=== PATIENT | male | born 1940 | race Caucasian/White ===

== ENCOUNTER → 2020-05-27 14:03 | Outpatient (CLI) | payer MEDICARE, OTHER, SELFPAY ==
[2020-05-27 13:33] VITALS: BMI 27.6
[2020-05-27 16:59] LABS: Hematocrit 41.1 % (40-54); Hemoglobin 13.2 g/dL (13.0-16.5); Mean Corp Hgb Conc 32.1 g/dL (32-36); Mean Corpuscular Hgb 32.2 pg (27.0-32.0); Mean Corpuscular Volume 100.2 fL (80-94); Mean Platelet Vol. 10.8 fl (6.2-12.0); Platelet Count 232 K/mm3 (150-450); RBC Distribution Width CV 12.2 % (11.6-14.6); RBC Distribution Width SD 45.2 fl (35.1-43.9); White Blood Count 5.4 K/mm3 (4.4-11.0)
[2020-05-27 17:34] LABS: ALB/GLOB Ratio 1.1 RATIO (0.9-2.4); AST(SGOT) 37 U/L (15-37); Alanine Aminotransfer ALT/SGPT 76 U/L (16-61); Albumin, Serum 3.9 g/dL (3.2-5.0); Alkaline Phosphatase 62 U/L (45-117); Anion Gap 4 (5-15); BUN 29 mg/dL (7-18); BUN/Creat Ratio 23.4 RATIO (10-20); Chloride 113 mmol/L (98-107); Cholesterol 166 mg/dL (200); Creatinine, Serum 1.24 mg/dL (0.70-1.30); EST Glomerular Filtration Rate 60 mL/min (>60); Est Glom Filt Rate - Afr Amer 72 mL/min (>60); Globulin 3.5 g/dL (2.2-4.2); Glucose 90 mg/dL (74-106); High Density Lipoprotein 57 mg/dL; Potassium 4.9 mmol/L (3.5-5.1); Protein, Total 7.4 g/dL (6.4-8.2); Sodium Level 143 mmol/L (136-145); Thyroid Stim Hormone (TSH) 1.37 uIU/mL (0.358-3.74); Triglycerides 74 mg/dL; Very Low Density Lipoprotein 15 mg/dL (5-40)
== END ==
PROVIDERS: PCP Family Medicine; Referring Provider Nurse Practitioner Family; Visit Provider Nurse Practitioner Family
DX: E78.00 Pure hypercholesterolemia, unspecified (principal); E78.5 Hyperlipidemia, unspecified; M10.9 Gout, unspecified
CPT/HCPCS: 36415; 80053; 80061; 84443; 85027

== ENCOUNTER → 2021-08-02 08:11 | Outpatient (CLI) | payer MEDICARE, OTHER, SELFPAY ==
--- NOTE | 2021-08-02 12:45 | NEURO ---
NCS and/or EMG Patient Report Ordering Doctor: Mauri Shi DATE OF SERVICE: 08/02/21 Iraj Abad presents for electrodiagnostic testing of the left upper limb. Reports numbness and tingling in the left arm for the past 3 months. Electrodiagnostic findings left median motor nerve demonstrates prolonged distal latency with reduced amplitude and conduction velocity. Normal left ulnar motor response. Prolonged left median F wave. Absent median sensory response at the palm and wrist. Normal ulnar and radial sensory responses. On needle EMG, all muscles tested in the left upper limb showed no evidence of denervation. Decreased recruitment noted in the first dorsal interosseous. Electrodiagnostic assessment: This is an abnormal study in the left upper limb. 1. Electrodiagnostic findings demonstrate left-sided median mononeuropathy. This is consistent with an advanced left carpal tunnel syndrome.
== END ==
PROVIDERS: PCP Family Medicine; Referring Provider Family Medicine; Visit Provider Family Medicine
DX: G56.02 Carpal tunnel syndrome, left upper limb (principal)
CPT/HCPCS: 95886; 95910

== ENCOUNTER 2021-10-03 05:37 | Day surgery (SDC) | payer MEDICARE, OTHER, SELFPAY ==
[2021-10-03] VITALS (7 sets, daily range): BP systolic 121–140; BP diastolic 65–83; PULSE 61–63; RESP 16–18; TEMP 35.9–36.2; O2SAT 95–99; BMI 27.9
[2021-10-03] MEDS: Lactated Ringers 1,000 ML 15 ML IV (06:40)
--- NOTE | 2021-10-03 07:17 | PCM.HP.BLA ---
History and Physical Date of Admission: 10/03/21 Date of Service: 09/04/21 MR#:[id number]: KRYS AYALARep #[id number] Provider:Dr. Arnold Galindo, Age/Sex: 81/M Location:[facility]:Signed Intake Vital Signs 09/04/21 14:21 Height 5 ft 11 in Weight: 196 lb BMI 27.3 Intake Visit Reasons: LEFT WRIST Allergies No Known Allergies Allergy (Verified 08/10/21 12:52) Medications timolol maleate 0.5 % eye drops 1 drp OPHTHALMIC BID 11/18/18 [History Confirmed 09/04/21] aspirin 325 mg tablet 325 mg PO DAILY tab 02/17/19 [History Confirmed 09/04/21] omeprazole 20 mg capsule,delayed release 20 mg PO DAILY #90 cap 05/16/21 [Rx Confirmed 09/04/21] simvastatin 20 mg tablet 20 mg PO QHS #90 tab 05/16/21 [Rx Confirmed 09/04/21] allopurinol 100 mg tablet 100 mg PO DAILY #90 tab 07/26/21 [Rx Confirmed 09/04/21] [facility] Medical History (Updated 09/04/21 @ 14:22 by Mirna Franklin) Family history of cholecystectomy Gout High cholesterol Surgical History (Updated 09/04/21 @ 14:22 by Mirna Franklin) History of atherectomy Hx of appendectomy Family History Father Diabetes Grandmother Diabetes Brother Diabetes Sister Diabetes Social History Smoking Status: Never smoker alcohol intake: current alcohol intake frequency: a few times a week Alcohol type: beer substance use type: does not use what type of physical activity do you participate in: other details: Golf frequency: 3-4 times per week HPI LEFT WRIST Details: Parts of this documentation were recorded by a scribe, this documentation accurately reflects the service provided and the decisions made by me, Dr. Arnold Galindo, DO 09/04/21 0749. KRYS AYALA is a 81 year old M NEW patient here today for left wrist pain, numbness and tingling. Patient states that he has been having the carpal tunnel s/sx for about 4 months. He has tried night bracing for about 2 months which was helpful at night. He was referred by Dr. Shi. He did have an EMG study done at [facility] on 08/02/2021 which showed advanced left carpal tunnel syndrome. He states that he has numbness and tingling of the left forearm into the left hand which includes all of his fingers but the 2nd and 3rd fingers are worse. He is left handed. Denies any injections or surgery of the left wrist. ROS Musc Denies arthralgias, Denies joint swelling, Reports numbness, Denies radiating pain into limb and Reports tingling Skin/Breast Denies erythema, Denies lesions, Denies pruritus, Denies rash and Denies skin swelling Neuro Yes numbness and Yes tingling Ortho Exam General General: Yes no acute distress Neurologic: Yes alert and Yes oriented x3 Psychologic: Yes reasonable and appropriate Right Wrist/Hand Skin/Wound: No Swelling and No Ecchymosis Left Wrist/Hand Skin/Wound: No Swelling, No Ecchymosis, Yes capillary refill normal and No erythema Left Wrist: Yes ROM-Extension 0-60, Yes ROM-Flexion 0-80, Yes ROM-Pronation 0-80, Yes ROM-Supination 0-90, Yes Durken's Test, Yes Tinel's, Yes Phalen's and Yes Thenar Atrophy WRIST: scar over the wrist x2, no s/sx of infection 4-5th stiffness of the PIP joints. Supplemental Info 08/02/2021 EMG left upper extremity severe carpal tunnel syndrome Coding Level of Care Code 14219 Diagnoses CTS (carpal tunnel syndrome) G56.00 Assessment and Plan Assessment and Plan (1) CTS (carpal tunnel syndrome): Status: Acute Plan - Dr. Arnold Galindo, DO: Personally reviewed patients EMG study from 07/2021. Educated that he does have advanced left carpal tunnel syndrome. Educated that he already has the thenar atrophy and this is permanent wasting of the muscle which will not return. Recommended that he has a left carpal tunnel release. The surgery may not take about the numbness and tingling but it will prevent the carpal tunnel from worsening. He will also be prone to stiffness after surgery and he will need to work on finger and wrist ROM post op. He can have sensitivity over the incision for a few months after surgery. Reviewed the pre-operative plans with the patient. Risks and benefits of the procedure were fully explained, including but not limited to infection, neurovascular injury, continued pain, arthritis, stiffness, need for further surgery, re-injury, DVT, PE, general risks of anesthesia, and loss of limb or life. The patient understands all the risks and does wish to proceed with written consent with left carpal tunnel release. He will need to to stop the aspirin 7 days prior to surgery. We will also need medical clearance from Dr. Shi. He wishes to proceed with surgery around the beginning of September. Follow up post op or sooner if pain, swelling, numbness or associated symptoms, or concerns develop. All questions answered. Patient in agreement of plan. 09/04/21 1449<Electronically signed by Arnold Galindo DO>Date Arnold Crane Signature:Date I have re-examined the patient. There are no clinical changes since date of exam
[2021-10-03] MEDS: Cefazolin 2 GM in 0.9% Normal Saline 100 ML IV (07:23)
[2021-10-03] MEDS: Lidocaine 1% /Epi 1:100 (20ml) 20 ML Vial (07:35)
--- NOTE | 2021-10-03 07:44 | PCM.OPRPT ---
Report of Operation Date of Procedure: 10/03/21 Description of Surgical Findings:: Preoperative diagnosis; left carpal tunnel syndrome Postoperative diagnosis; same Procedure: Left open carpal tunnel release Anesthesia: Local with MAC Tourniquet time; 10 minutes 250 mm Hg Complications: None Indication for procedure; This is a 81-year-old male with long-standing symptoms consistent with carpal tunnel syndrome the patient did have electrodiagnostic evidence of this and has failed conservative treatment. Risks benefits and alternatives were reviewed including risks of bleeding infection nerve artery tissue damage need for further surgery and continued pain and symptoms, hypersensitivity to scar and Pillar pain. Procedure; The patient was met in the preoperative holding area the operative extremity was identified by both patient and physician and was marked the patient was met by anesthesia and brought back to the operating room and transferred to the operating table in the supine position. Aanesthesia was started. A well-padded tourniquet was placed on the operative upper extremity. The patient was prepped and draped in the usual sterile fashion. A timeout was called to ensure the proper patient procedure and extremity were being contemplated. 0.5 percent Marcaine with epinephrine was injected into the incisional area. An Esmarch was used to exsanguinate the extremity. The tourniquet was inflated to 250 mmHg. A midline incision was made with a 15 blade scalpel between the thenar and hypothenar eminence. This was carried down through the skin and subcutaneous tissue. Ayanna retractors were then used, a deep blade scalpel was used to make a deep incision in the palmar aponeurosis. The ayanna retractors were then placed deep to this and the transverse carpal ligament was identified a perforation was made with a scalpel and a Littler scissors were used to complete the release of the transverse carpal ligament distally under direct visualization with the tips facing ulnarly until the perivascular fat was reached. Then turning our attention proximally using a tension slide technique the proximal extent of the transverse carpal ligament was released . There was noted to be hourglass configuration to the median nerve and hypertrophy of the transverse carpal ligament without other findings. The wound was thoroughly irrigated and was closed with 4-0 nylon vertical mattress stitches. Dressing was applied in the form of xeroform 4 x 4, web roll and an gail wrap. Tourniquet was let down there is no intraoperative complications patient tolerated the procedure well and was transferred to the PACU. All counts were correct.
--- NOTE | 2021-10-03 07:45 | EX.PCM.DISCH ---
Discharge Instructions Diet Discharge Diet: No restrictions Activity Additional Activity Instructions:: Ice and elevate operative extremity next 72 hours. Keep dressing on clean and dry for 48 hours then may remove and allow warm soapy water to rinse over incision but do not submerge until sutures are out. Then apply bandaid over incision and change daily. encourage finger range of motion. Not lift more than 1/2 pound. Minimize narcotic use only as needed and directed, may use OTC NSAID and Tylenol to supplement/substitute for pain control. Follow Up Care Please Follow Up With: Arnold Galindo DO When: 2 weeks Test Results: Test results from this visit will be discussed in further detail at your follow-up appointment, if applicable. Discharge Plan Admission Attending Provider: Arnold Galindo Primary Care Provider: Mauri Shi Discharge Orders/Prescriptions Prescriptions: New oxycodone 5 mg tablet 5 - 10 mg PO Q4H PRN (Reason: pain) 2 Days Qty: 10 RF: 0 No Action timolol maleate 0.5 % drops 1 drp OPHTHALMIC DAILY RF: 0 aspirin 325 mg tablet 325 mg PO DAILY RF: 0 simvastatin 20 mg tablet 20 mg PO QHS Qty: 90 RF: 1 omeprazole 20 mg capsule,delayed release(DR/EC) 20 mg PO DAILY Qty: 90 RF: 3 allopurinol 100 mg tablet 100 mg PO DAILY Qty: 90 RF: 2 Referrals / Follow Up: Mauri Shi DO [Primary Care Provider] - Disposition Disposition (needs filled in before D/C Order can be placed): Home, Self Care
== END 2021-10-03 09:06 | disposition home or self-care (01) ==
LOC: SDC 05:41 → AC 05:42
PROVIDERS: PCP Family Medicine; Referring Provider Orthopaedic Surgery; Visit Provider Orthopaedic Surgery
PROC: (CPT 64721; principal; 2021-10-03 07:15)
DX: G56.02 Carpal tunnel syndrome, left upper limb (principal); Z79.899 Other long term (current) drug therapy; Z79.82 Long term (current) use of aspirin
CPT/HCPCS: 01810; 64721; J7120; J2405

== ENCOUNTER → 2022-03-21 | Outpatient (CLI) | payer MEDICARE, OTHER, SELFPAY ==
[2022-03-21 15:29] LABS: Absolute Lymphocyte Count 1.55 X10^3/uL (0.83-4.51); Absolute Neutrophil Count 2.2 X10^3/uL (2.0-7.7); Basophil# 0.04 X10^3/uL; Basophil% 0.9 % (0-1); Eosinophils% 4.5 % (0-5); Hematocrit 39.8 % (40-54); Hemoglobin 13.4 g/dL (13.0-16.5); Lymphocyte # 1.55 X10^3/ul (0.83-4.51); Lymphocyte % 34.7 % (19-41); Mean Corp Hgb Conc 33.7 g/dL (32-36); Mean Corpuscular Hgb 32.4 pg (27.0-32.0); Mean Corpuscular Volume 96.1 fL (80-94); Mean Platelet Vol. 10.8 fl (6.2-12.0); Monocyte# 0.52 X10^3/uL; Monocyte% 11.6 % (0-10); NRBC Flagged by Analyzer 0 % (0-5); Neutrophil # 2.15 X10^3/uL (2.7-7.7); Neutrophil % 48.1 % (47-70); Platelet Count 218 K/mm3 (150-450); RBC Distribution Width CV 12.3 % (11.6-14.6); RBC Distribution Width SD 43.5 fl (35.1-43.9); Red Blood Count 4.14 M/mm3 (4.6-6.2); White Blood Count 4.5 K/mm3 (4.4-11.0)
[2022-03-21 15:47] LABS: ALB/GLOB Ratio 1.1 RATIO (0.9-2.4); AST(SGOT) 38 U/L (15-37); Alanine Aminotransfer ALT/SGPT 90 U/L (16-61); Albumin, Serum 3.9 g/dL (3.2-5.0); Alkaline Phosphatase 65 U/L (45-117); Anion Gap 4 (5-15); BUN 17 mg/dL (7-18); BUN/Creat Ratio 11.8 RATIO (10-20); Calcium,Total 9.3 mg/dL (8.5-10.1); Chloride 110 mmol/L (98-107); Cholesterol 163 mg/dL (200); Creatinine, Serum 1.44 mg/dL (0.70-1.30); EST Glomerular Filtration Rate 50 mL/min (>60); Est Glom Filt Rate - Afr Amer 60 mL/min (>60); Globulin 3.6 g/dL (2.2-4.2); Glucose 99 mg/dL (74-106); High Density Lipoprotein 53 mg/dL; Potassium 5.1 mmol/L (3.5-5.1); Protein, Total 7.5 g/dL (6.4-8.2); Sodium Level 141 mmol/L (136-145); Triglycerides 64 mg/dL; Uric Acid 6.8 mg/dL (3.5-7.2); Very Low Density Lipoprotein 13 mg/dL (5-40)
[2022-03-22 07:27] LABS: Amylase 50 U/L (25-115); Lipase 83 U/L (73-393)
== END | disposition home or self-care (01) ==
LOC: BIMLAB 14:10
PROVIDERS: PCP Family Medicine; Referring Provider Physician Assistant; Visit Provider Physician Assistant
DX: R10.11 Right upper quadrant pain (principal); M10.9 Gout, unspecified; E78.00 Pure hypercholesterolemia, unspecified; R07.9 Chest pain, unspecified
CPT/HCPCS: 36415; 80053; 80061; 82150; 83690; 84550; 85025

== ENCOUNTER → 2022-05-30 | Outpatient (CLI) | payer MEDICARE, OTHER, SELFPAY ==
[2022-05-30 18:36] LABS: ALB/GLOB Ratio 1.1 RATIO (0.9-2.4); AST(SGOT) 35 U/L (15-37); Alanine Aminotransfer ALT/SGPT 79 U/L (16-61); Albumin, Serum 4.1 g/dL (3.2-5.0); Alkaline Phosphatase 69 U/L (45-117); Anion Gap 3 (5-15); BUN 15 mg/dL (7-18); BUN/Creat Ratio 10.9 RATIO (10-20); Calcium,Total 9.4 mg/dL (8.5-10.1); Chloride 107 mmol/L (98-107); Creatinine, Serum 1.38 mg/dL (0.70-1.30); EST Glomerular Filtration Rate 52 mL/min (>60); Est Glom Filt Rate - Afr Amer 63 mL/min (>60); Globulin 3.8 g/dL (2.2-4.2); Glucose 85 mg/dL (74-106); Potassium 4.4 mmol/L (3.5-5.1); Protein, Total 7.9 g/dL (6.4-8.2); Sodium Level 138 mmol/L (136-145)
== END | disposition home or self-care (01) ==
LOC: BIMLAB 16:09
PROVIDERS: Physician Assistant; PCP Family Medicine; Visit Provider Family Medicine
DX: M10.9 Gout, unspecified (principal)
CPT/HCPCS: 36415; 80053

== ENCOUNTER → 2023-08-07 | Outpatient (CLI) | payer MEDICARE, OTHER, SELFPAY ==
[2023-08-07 16:45] LABS: ALB/GLOB Ratio 1.2 RATIO (0.9-2.4); AST(SGOT) 26 U/L (15-37); Alanine Aminotransfer ALT/SGPT 49 U/L (16-61); Albumin, Serum 3.8 g/dL (3.2-5.0); Alkaline Phosphatase 60 U/L (45-117); Anion Gap 3 (5-15); BUN 13 mg/dL (7-18); BUN/Creat Ratio 9.8 RATIO (10-20); Chloride 111 mmol/L (98-107); Cholesterol 138 mg/dL (200); Creatinine, Serum 1.33 mg/dL (0.70-1.30); EST Glomerular Filtration Rate 55 mL/min (>60); Est Glom Filt Rate - Afr Amer 66 mL/min (>60); Globulin 3.2 g/dL (2.2-4.2); Glucose 112 mg/dL (74-106); High Density Lipoprotein 58 mg/dL; Potassium 4.9 mmol/L (3.5-5.1); Sodium Level 142 mmol/L (136-145); Triglycerides 65 mg/dL; Uric Acid 7.2 mg/dL (3.5-7.2); Very Low Density Lipoprotein 13 mg/dL (5-40)
== END | disposition home or self-care (01) ==
LOC: BIMLAB 15:47
PROVIDERS: PCP Family Medicine; Visit Provider Family Medicine
DX: E78.00 Pure hypercholesterolemia, unspecified (principal)
CPT/HCPCS: 36415; 80053; 80061; 84550

== ENCOUNTER → 2024-02-05 | Outpatient (CLI) | payer MEDICARE, SELFPAY ==
[2024-02-05 17:21] LABS: Anion Gap 5 (5-15); BUN 11 mg/dL (7-18); Calcium,Total 9.3 mg/dL (8.5-10.1); Chloride 111 mmol/L (98-107); Creatinine, Serum 1.38 mg/dL (0.70-1.30); EST Glomerular Filtration Rate 52 mL/min (>60); Est Glom Filt Rate - Afr Amer 63 mL/min (>60); Glucose 116 mg/dL (74-106); Potassium 4.7 mmol/L (3.5-5.1); Sodium Level 141 mmol/L (136-145)
== END | disposition home or self-care (01) ==
PROVIDERS: PCP Family Medicine; Referring Provider Family Medicine; Visit Provider Family Medicine
DX: E78.00 Pure hypercholesterolemia, unspecified (principal); K21.9 Gastro-esophageal reflux disease without esophagitis
CPT/HCPCS: 36415; 80048

== ENCOUNTER 2024-02-14 16:10 | Observation (INO) | payer MEDICARE, SELFPAY ==
[2024-02-14] VITALS (8 sets, daily range): BP systolic 129–178; BP diastolic 73–117; PULSE 63–88; RESP 12–18; TEMP 36.2–36.9; O2SAT 95–99; BMI 28.4; BMI 27.2
--- NOTE | 2024-02-14 16:22 | EKG12_ITS ---
Test Reason : Blood Pressure : / mmHG Vent. Rate : 066 BPM Atrial Rate : 066 BPM P-R Int : 182 ms QRS Dur : 090 ms QT Int : 410 ms P-R-T Axes : 025 021 007 degrees QTc Int : 429 ms Normal sinus rhythm Normal ECG Confirmed by Evaristo Cervantes ([id number]), industrial editor LISSA SCHILLING ([id number]) on 02/17/2024 2:20:09 PM Referred By: Confirmed By:Evaristo Cervantes
--- NOTE | 2024-02-14 16:42 | CT_ITS ---
INDICATION: Neuro deficit, acute, stroke suspected EXAMINATION: CT BRAIN WITH CONTRAST TECHNIQUE: Noncontrast axial images were obtained of the brain. Subsequently, routine carotid CT angiogram protocol was performed without and with IV contrast. In addition, images were obtained of the [place]. NASCET criteria using the distal ICAs for comparison were used for evaluation of stenoses. 3D reconstructions were reviewed. A radiation dose optimization technique was used for this scan. IV Contrast dosage and agent: 100 cc [id number]-370 COMPARISON: None. FINDINGS: --CT BRAIN: BRAIN PARENCHYMA: No intra- or extra-axial hemorrhage. No evidence of acute infarct. No intracranial mass or mass effect. There is preservation of the freitas/white matter interface. Posterior fossa structures are unremarkable. CSF SPACES: Appropriate for age. No hydrocephalus. Basal cisterns are patent. CALVARIUM, SKULL BASE, PARANASAL SINUSES AND MASTOID AIR CELLS: Clear. No discrete lytic or blastic abnormalities. --CTA NECK: AORTIC ARCH AND BRANCHES: Normal anatomy, patent. RIGHT CCA: No occlusion, significant stenosis or dissection. RIGHT ICA: No occlusion, significant stenosis or dissection. LEFT CCA: No occlusion, significant stenosis or dissection. LEFT ICA: No occlusion, significant stenosis or dissection. RIGHT VERTEBRAL ARTERY: No occlusion, significant stenosis or dissection. LEFT VERTEBRAL ARTERY: No occlusion, significant stenosis or dissection. NECK SOFT TISSUES: Unremarkable. --CTA HEAD: --Anterior circulation: ICAs: No significant stenosis at the intracranial/visualized segments. ACAs: No significant stenosis at the visualized segments. ACOM: Present. MCAs: No significant stenosis at the visualized segments. --Posterior circulation: PCOMs: Patent bilaterally. therapeutic consultant: No significant stenosis at the visualized segments. BASILAR ARTERY: No significant stenosis. VERTEBRAL ARTERIES: No significant stenosis at the intradural/visualized segments. No evidence of intracranial aneurysm or vascular malformation. CT/CTA Head AND Neck W/ Contrast IMPRESSION: Negative CT Brain, CTA Carotid, and CTA Brain. Electronically Signed: Prem Yang MD at 17:47 EDT ,
--- NOTE | 2024-02-14 16:42 | EDS_ITS ---
HPI History of Present Illness Chief Complaint: Neuro S/Sx Narrative Narrative: 84-year-old male past medical history of hypercholesterolemia, gout, presents with headache, and vision changes. He states that he woke at 730 this morning and thinks that he was having problems out of his bilateral eyes. He told triage that it was like looking through broken glass. This resolved after 20 to 25 minutes according to him. He had a little bit of a headache that had resolved as well. This afternoon at 3, he states his headache came back but the vision changes did not return. States his head hurts all over. He told his later on in the afternoon about the vision changes. They called their primary care provider and spoke with the practical nurse who was concerned about TIA and told him to come to the emergency department for evaluation because the symptoms could happen again within 24 hours. Patient denies any chest pain or shortness of breath. No vision or speech changes. He states he was able to go to the gym and workout, but his headache did not really resolve. also states that he has history of carotid endarterectomy on 1 side, but he did not require any surgery on the other side. [facility] Medical History Alcohol use Arthritis Asthma Back pain Gastric reflux Gout Gout High cholesterol History of stress test Hx of closed fracture of nasal bones Non-smoker Wears hearing aid Wears partial dentures Home Medications nitroglycerin 0.4 mg sublingual tablet 0.4 mg sublingual Q5-15M PRN chest pain #20 tabs 11/21/22 [Rx Last Taken Unknown] aspirin 325 mg tablet 162.5 mg PO DAILY 08/07/23 [History Last Taken 02/14/24] pantoprazole 20 mg tablet,delayed release 20 mg PO DAILY Reflux #60 tabs 01/17/24 [Rx Last Taken 02/14/24] simvastatin 20 mg tablet 20 mg PO QHS #60 tabs 01/17/24 [Rx Last Taken 02/13/24] carboxymethylcellulose sodium 1 % eye drops (Artificial Tears (carboxymethylcellulose)) 1 drp EACH EYE DAILY PRN dry eye(s) 02/14/24 [History Last Taken Unknown] nystatin 100,000 unit/gram topical powder 1 applic topical BID PRN skin irritation 02/14/24 [History Last Taken Unknown] Allergy/AdvReac Type Severity Reaction Status Date / Time No Known Allergies Allergy Verified 02/14/24 16:12 Family History Father Diabetes Grandmother Diabetes Brother Diabetes Sister Diabetes Surgical History History of cardiac catheterization History of carotid endarterectomy History of incision and drainage Hx laparoscopic cholecystectomy Hx of colonoscopy Hx of left cataract extraction Hx of shoulder surgery Social History (Updated 02/14/24 @ 18:[address] Felisa Harley MD) household members: spouse Smoking Status: Never smoker alcohol intake: current alcohol intake frequency: a few times a week Alcohol type: beer substance use type: does not use what type of physical activity do you participate in: other details: Golf frequency: 3-4 times per week ROS ROS ED ROS Narrative Constitutional: No fever, no chills. HEENT: No sore throat. No neck pain. No loss of vision. Positive vision change this morning lasting 20 to 25 minutes. No rhinorrhea. Cardiovascular: No chest pain. No palpitations. No pedal edema. Respiratory: No cough, no shortness of breath. Abdominal: No abdominal pain. No nausea. No vomiting. Genitourinary: No dysuria. No hematuria. Musculoskeletal: No myalgias. No arthralgias. Neurologic: Positive headaches. No dizziness. No lightheadedness. Skin: No rash. No change in color. Psychiatric: No depression. No anxiety. EXAM Physical Exam Narrative Exam Narrative: Afebrile. Vital signs noted. HEENT: Normocephalic. Atraumatic. PERRL, EOMI. Neck soft and supple. No point tenderness or step off. Cardiovascular: Regular rate and rhythm. No murmurs, rubs, or gallops appreciated. Respiratory: No tachypnea. Lungs clear to auscultation bilaterally. Gastrointestinal: Abdomen soft, nontender, with normoactive bowel sounds. No rebound or guarding. Neurological: Awake. Alert. Nonfocal, nonlateralizing. NIH stroke scale is 0. Skin: No rash. Normal color. No pallor. Musculoskeletal: No pedal edema. Full range of motion extremities. Const Vital Signs: 02/14/24 16:12 02/14/24 16:46 02/14/24 17:11 Temperature 97.1 F L Temperature Source Temporal Pulse Rate 81 66 Respiratory Rate 18 13 Blood Pressure 173/88 H 177/88 H Blood Pressure Mean 116 117 Pulse Ox 97 99 Oxygen Delivery Method Room Air Room Air Room Air 02/14/24 17:11 02/14/24 17:30 02/14/24 18:00 Temperature Temperature Source Pulse Rate 66 65 67 Respiratory Rate 13 13 16 Blood Pressure 177/88 H 178/73 H 157/83 H Blood Pressure Mean 117 108 107 Pulse Ox 99 99 95 Oxygen Delivery Method Room Air Room Air Room Air 02/14/24 18:04 Temperature 98.4 F Temperature Source Pulse Rate 63 Respiratory Rate 13 Blood Pressure 129/117 H Blood Pressure Mean 121 Pulse Ox 96 Oxygen Delivery Method NIHSS NIHSS Initial: 1a Level of Consciousness: 0 1b LOC Questions (Score 2 if aphasic/stupor): 0 1c LOC Commands (Only score 1st attempt): 0 2 Best Gaze (If aphasic, use reflexive mvmts.): 0 3 Visual: 0 4 Facial Palsy: 0 5 Motor Arm Right (UN = amputation/fusion): 0 5 Motor Arm Left: 0 6 Motor Leg Right: 0 6 Motor Leg Left: 0 7 Limb ataxia (Only + if out of proportion): 0 8 Sensory (Aphasia/stupor=0 or 1, coma=2): 0 9 Best Language: 0 10 Dysarthria (mute, coma=2, intubated=UN): 0 11 Extinction and Inattention (only scored if +): 0 Total Score: 0 MDM MDM MDM Narrative Medical decision making narrative: In the differential diagnosis is TIA versus atypical migraine. I have low suspicion for retinal pathology as he states that he believes his symptoms were bilateral, and additionally they have resolved. I do not feel that stroke team is indicated given his NIH stroke scale of 0 and complaining only of mild headache. He is outside the window for any TNK as his symptoms started at 730 this morning this was approximately 9 hours ago. He is symptom-free. I reviewed his laboratory work and he has normal white count of 4.8, hemoglobin normal at 13.2, hematocrit 40.6, platelet count normal at 222. INR is normal at 1.0 with PT 13.3, creatinine is slightly elevated at 1.32 (baseline with a normal BUN of 13, glucose appropriately elevated at 100, sodium and potassium normal at 140 and 4.3 respectively with chloride slightly elevated at 108 which I think is nonspecific. High-sensitivity troponin is 9. EKG interpreted by myself independently demonstrates normal sinus rhythm at 66 bpm without ectopy or acute ST changes. No STEMI. I reviewed the radiology report of the CT of the brain which shows no acute hemorrhage, CTA shows no large vessel occlusion according to the radiology report as well. Chest x-ray in 1 view interpreted by myself shows no acute process, no pneumonia, no pneumothorax. I reviewed the radiology report which confirms my independent interpretation. At this point in time, he remains symptom-free. I discussed patient with Dr. Felisa Harley for observation on the PCU. Patient is in stable condition. History & Record Review Discussion w/independent historian: Patient and Family Additional record(s) reviewed:: Prior labs Lab Data Attestation: I reviewed the patient's lab results. Labs: Laboratory Results - last 24 hr 02/14/24 16:36 WBC 4.8 RBC 4.26 L Hgb 13.2 Hct 40.6 MCV 95.3 H MCH 31.0 MCHC 32.5 RDW Std Deviation 42.7 RDW Coeff of [place] 12.2 Plt Count 222 MPV 10.6 Immature Gran % (Auto) 0.400 Neut % (Auto) 50.5 Lymph % (Auto) 32.7 Cobb % (Auto) 11.9 H Eos % (Auto) 3.5 Baso % (Auto) 1.0 Absolute Neuts (auto) 2.4 Absolute Lymphs (auto) 1.57 Nucleated RBC % 0 PT 13.3 INR 1.0 Sodium 140 Potassium 4.3 Chloride 108 H Carbon Dioxide 25.0 Anion Gap 7 BUN 13 Creatinine 1.32 H Estim Creat Clear Calc 48.42 Est GFR (MDRD) Af Amer 66 Est GFR (MDRD) Non-Af 55 L BUN/Creatinine Ratio 9.8 L Glucose 100 Calcium 9.2 Troponin I High Sens 9 Radiography Diagnostic Testing: Clinical Impression(s) from Imaging Studies Head/Neck CTA 02/14/24 16:42 IMPRESSION: Negative CT Brain, CTA Carotid, and CTA Brain. Electronically Signed: Prem Yang MD at 17:47 EDT , Chest X-Ray 02/14/24 17:03 IMPRESSION: No radiographic evidence of acute cardiopulmonary disease. Electronically Signed: Prem Yang MD at 17:34 EDT Reading Location ID and State: [facility] [place] / [place] Tel , Service support , Management Discussion w/another healthcare provider: Hospitalist (Dr. Harley) Discharge Plan Triage Chief Complaint: Neuro S/Sx Other Complaint: Headache ED Provider: Keaton Cyr Dx/Rx/DC Orders Clinical Impression: Visual disturbance, TIA (transient ischemic attack), Headache Prescriptions: No Action aspirin 325 mg tablet 162.5 mg PO DAILY Patient Comments: TAKE ONE HALF TABLET DAILY nitroglycerin 0.4 mg tablet, sublingual 0.4 mg sublingual Q5-15M PRN (Reason: chest pain) Qty: 20 0RF Rx Instructions: do not exceed 3 doses per episode Artificial Tears (cmc) 1 % drops 1 drp EACH EYE DAILY PRN (Reason: dry eye(s)) nystatin 100,000 unit/gram powder 1 applic topical BID PRN (Reason: skin irritation) pantoprazole 20 mg tablet,delayed release (DR/EC) 20 mg PO DAILY Qty: 60 2RF simvastatin 20 mg tablet 20 mg PO QHS Qty: 60 2RF Primary Care Provider: Mauri Shi Referrals: Mauri Shi, DO [Primary Care Provider] -
[2024-02-14 16:54] LABS: Absolute Lymphocyte Count 1.57 X10^3/uL (0.83-4.51); Absolute Neutrophil Count 2.4 X10^3/uL (2.0-7.7); Basophil# 0.05 X10^3/uL; Eosinophil# 0.17 X10^3/uL; Eosinophils% 3.5 % (0-5); Hematocrit 40.6 % (40-54); Hemoglobin 13.2 g/dL (13.0-16.5); Lymphocyte # 1.57 X10^3/ul (0.83-4.51); Lymphocyte % 32.7 % (19-41); Mean Corp Hgb Conc 32.5 g/dL (32-36); Mean Corpuscular Volume 95.3 fL (80-94); Mean Platelet Vol. 10.6 fl (6.2-12.0); Monocyte# 0.57 X10^3/uL; Monocyte% 11.9 % (0-10); NRBC Flagged by Analyzer 0 % (0-5); Neutrophil # 2.42 X10^3/uL (2.7-7.7); Neutrophil % 50.5 % (47-70); Platelet Count 222 K/mm3 (150-450); RBC Distribution Width CV 12.2 % (11.6-14.6); RBC Distribution Width SD 42.7 fl (35.1-43.9); Red Blood Count 4.26 M/mm3 (4.6-6.2); White Blood Count 4.8 K/mm3 (4.4-11.0)
[2024-02-14 16:59] LABS: Prothrombin Time (Protime)PT. 13.3 SECONDS (11.7-14.9)
--- NOTE | 2024-02-14 17:03 | RAD_ITS ---
INDICATION: Neuro deficit, acute, stroke suspected EXAMINATION/TECHNIQUE: X-RAY - portable upright AP chest x-ray COMPARISON: None. FINDINGS: LINES/DEVICES: None. LUNGS: No consolidation, edema or effusion. No pneumothorax. MEDIASTINUM AND CARDIOVASCULAR STRUCTURES: Cardiac silhouette not enlarged. Central airways and mediastinal contour are unremarkable. BONES AND SOFT TISSUES: No acute findings. RAD/Chest 1 View IMPRESSION: No radiographic evidence of acute cardiopulmonary disease. Electronically Signed: Prem Yang MD at 17:34 EDT ,
[2024-02-14 17:10] LABS: Anion Gap 7 (5-15); BUN 13 mg/dL (7-18); BUN/Creat Ratio 9.8 RATIO (10-20); Calcium,Total 9.2 mg/dL (8.5-10.1); Chloride 108 mmol/L (98-107); Creatinine, Serum 1.32 mg/dL (0.70-1.30); EST Glomerular Filtration Rate 55 mL/min (>60); Est Glom Filt Rate - Afr Amer 66 mL/min (>60); Estimated Creatinine Clearance 48.42 ml/min; Glucose 100 mg/dL (74-106); Potassium 4.3 mmol/L (3.5-5.1); Sodium Level 140 mmol/L (136-145); Troponin-I HS 9 pg/mL (3.0-78.0)
--- NOTE | 2024-02-14 18:04 | HP.PCM.HOS_ITS ---
HPI - General General Date of Admission: 02/14/24 Date of Service: 02/14/24 Chief Complaint: Transient vision changes, headache. HPI Narrative The patient is an 84 y/o M w/ PMHx: Asthma, GERD, Gout, CKD stage III unclear subtype per GFR trending, HLD, Carotid disease s/p CEA who presents to the [facility] ED on 02/14/24 with history of awakening at 7:30 in the morning with vision changes reportedly stating that he felt as though he was looking at a broken glass which resolved after 20-25 minutes in addition to a mild headache that resolved as well however at approximately 3 PM he had return of his headache but no specific vision changes but his head hurt diffusely all over eventually prompting PCP call who recommended given the vision changes previously evaluation in the ED to assure no concern for TIA/stroke. Patient denies any other focal deficits. He notes he was even able to go to the gym and workout but the headache still continued. Patient notes that the headache at its worst was 1-2 out of 10 in severity and currently is at 0.5 out of 10 and nearly resolved. He states that it has been in different places and currently right now is more in the frontal region and he has difficulty describing it but notes it is very minimal. He denies any sound or light sensitivity. Workup in the ED included T97.1, heart rate 81, BP 173/88, respiratory rate is 18, 97% on room air, CBC with WBC 4.8, hemoglobin 13.2, platelet 222 without marked shift, unremarkable coags, BMP with chloride 108, BUN/creatinine 13/1.32, GFR 55, troponin 9, chest x-ray with no acute cardiopulmonary findings, CTA head and neck with no marked acute findings, CT brain also unremarkable, EKG SR without acute evidence of acute ischemia. In the ED NIHSS 0. PFSH Medical History Alcohol use Arthritis Asthma Back pain Gastric reflux Gout Gout High cholesterol History of stress test Hx of closed fracture of nasal bones Non-smoker Wears hearing aid Wears partial dentures Home Medications nitroglycerin 0.4 mg sublingual tablet 0.4 mg sublingual Q5-15M PRN chest pain #20 tabs 11/21/22 [Rx Last Taken Unknown] aspirin 325 mg tablet 162.5 mg PO DAILY 08/07/23 [History Last Taken 02/14/24] pantoprazole 20 mg tablet,delayed release 20 mg PO DAILY Reflux #60 tabs 01/17/24 [Rx Last Taken 02/14/24] simvastatin 20 mg tablet 20 mg PO QHS #60 tabs 01/17/24 [Rx Last Taken 02/13/24] carboxymethylcellulose sodium 1 % eye drops (Artificial Tears (carboxymethylcellulose)) 1 drp EACH EYE DAILY PRN dry eye(s) 02/14/24 [History Last Taken Unknown] nystatin 100,000 unit/gram topical powder 1 applic topical BID PRN skin irritation 02/14/24 [History Last Taken Unknown] Allergy/AdvReac Type Severity Reaction Status Date / Time No Known Allergies Allergy Verified 02/14/24 16:12 Family History Father Diabetes Grandmother Diabetes Brother Diabetes Sister Diabetes Mother Breast cancer Psoriasis Surgical History History of cardiac catheterization History of carotid endarterectomy History of incision and drainage Hx laparoscopic cholecystectomy Hx of colonoscopy Hx of left cataract extraction Hx of shoulder surgery Social History household members: spouse housing: condominium Smoking Status: Never smoker alcohol intake: current alcohol intake frequency: a few times a week Alcohol type: beer substance use type: does not use what type of physical activity do you participate in: other details: Golf frequency: 3-4 times per week ROS ROS Narrative Admission Review of Systems: CONSTITUTIONAL: No weight loss, fever, chills, + weakness or fatigue. HEENT: + Transient vision blurring/changes, mild headache. Eyes: No visual loss, double vision or yellow sclerae. Ears, Nose, Throat: No hearing loss, sneezing, congestion, runny nose or sore throat. SKIN: No rash or itching, lesions, wounds. CARDIOVASCULAR: No chest pain, chest pressure or chest discomfort, palpitations, edema, orthopnea, syncopal events. RESPIRATORY: No shortness of breath, cough or sputum, wheezing, hemoptysis. GASTROINTESTINAL: No anorexia, nausea, vomiting or diarrhea, abdominal pain, melena, BRBPR. GENITOURINARY: No dysuria, frequency, urgency or retention. NEUROLOGICAL: + Transient headache, vision changes as noted. No dizziness, syncope, paralysis, ataxia, numbness or tingling in the extremities, focal weakness, change in bowel or bladder control, seizure. MUSCULOSKELETAL: No muscle, back pain, joint pain or stiffness. HEMATOLOGIC: No anemia. + Easy bleeding/bruising. LYMPHATICS: No enlarged nodes. No history of splenectomy. PSYCHIATRIC: No history of depression or anxiety. ENDOCRINOLOGIC: No reports of sweating, cold or heat intolerance. No polyuria or polydipsia. ALLERGIES: No history of asthma, hives, eczema or rhinitis. Vital Signs Vital Signs Vital Signs: 02/14/24 16:12 02/14/24 16:46 02/14/24 17:11 Temperature 97.1 F L Temperature Source Temporal Pulse Rate 81 66 Respiratory Rate 18 13 Blood Pressure 173/88 H 177/88 H Blood Pressure Mean 116 117 Pulse Ox 97 99 Oxygen Delivery Method Room Air Room Air Room Air 02/14/24 17:11 02/14/24 17:30 Temperature Temperature Source Pulse Rate 66 65 Respiratory Rate 13 13 Blood Pressure 177/88 H 178/73 H Blood Pressure Mean 117 108 Pulse Ox 99 99 Oxygen Delivery Method Room Air Room Air Weight Weight: 203 lb 14.4 oz Body Mass Index (BMI) 28.4 Physical Exam Narrative Physical Examination: General: Awake, alert, oriented x 3 and cooperative, seated upright in the ED bed in no apparent distress. Skin: Normal color, normal turgor, no icterus, no cyanosis. HEENT: AT/NC, EOMI, PERRLA, MMM, vision currently intact, no carotid bruits or JVD noted. Lungs: Mildly diminished, greater bases, appropriate effort, no rales, ronchi or wheezing. Heart: Regular rate and rhythm; no gallop, rub audible. Abdomen: Soft, overweight, NTTP, ND, distant normal BS, no appreciated HSM. Extremities: No cyanosis, clubbing, or edema. Neurological: Patient awake, alert, oriented as noted, cognitive function intact; pupils equally reactive to light and accommodation, cranial nerves grossly normal, vision intact, sensation intact, finger-nose and [id number]-pw-[id number] appropriate, equivocal Babinski, moving all 4 extremities, no focal deficits, strength preserved. Psychiatric: Affect appears mildly fatigued otherwise normal, no acute evidence of depressive or anxiety feelings. Results Lab / Micro Data 02/14/24 16:36 02/14/24 16:36 Labs: Laboratory Results - last 24 hr 02/14/24 16:36: WBC 4.8, RBC 4.26 L, Hgb 13.2, Hct 40.6, MCV 95.3 H, MCH 31.0, MCHC 32.5, RDW Std Deviation 42.7, RDW Coeff of [place] 12.2, Plt Count 222, MPV 10.6, Immature Gran % (Auto) 0.400, Neut % (Auto) 50.5, Lymph % (Auto) 32.7, [place] % (Auto) 11.9 H, Eos % (Auto) 3.5, Baso % (Auto) 1.0, Absolute Neuts (auto) 2.4, Absolute Lymphs (auto) 1.57, Nucleated RBC % 0, PT 13.3, INR 1.0, Sodium 140, Potassium 4.3, Chloride 108 H, Carbon Dioxide 25.0, Anion Gap 7, BUN 13, Creatinine 1.32 H, Estim Creat Clear Calc 48.42, Est GFR (MDRD) Af Amer 66, Est GFR (MDRD) Non-Af 55 L, BUN/Creatinine Ratio 9.8 L, Glucose 100, Calcium 9.2, Troponin I High Sens 9 Imaging Radiology Impression Head/Neck CTA 02/14/24 16:42 IMPRESSION: Negative CT Brain, CTA Carotid, and CTA Brain. Electronically Signed: Prem Yang MD at 17:47 EDT , Chest X-Ray 02/14/24 17:03 IMPRESSION: No radiographic evidence of acute cardiopulmonary disease. Electronically Signed: Prem Yang MD at 17:34 EDT , Assessment & Plan Assessment/Plan (1) TIA (transient ischemic attack): PLAN: Plan The patient is an 84 y/o M w/ PMHx: Asthma, GERD, Gout, CKD stage III unclear subtype per GFR trending, HLD, Carotid disease s/p CEA who presents to the [facility] ED on 02/14/24 with history of awakening at 7:30 in the morning with vision changes reportedly stating that he felt as though he was looking at a broken glass which resolved after 20-25 minutes in addition to a mild headache that resolved as well however at approximately 3 PM he had return of his headache but no specific vision changes but his head hurt diffusely all over eventually prompting PCP call who recommended given the vision changes previously evaluation in the ED to assure no concern for TIA/stroke. #1. Transient vision changes with intermittent headache concerning for TIA versus atypical complex migraine: Will admit to PCU, will obtain MRI Brain, ECHO, PT/OT/Speech/Nutrition evaluation per protocol. Will allow permissive HTN, maintain on asa, statin w/ AM FLP, fall precautions. Mag, TSH, FLP, HgbA1c requested. Maintain on fall and aspiration precautions. Will request Neurology consultation. #2. Elevated BP without prior hypertensive diagnosis: From review of records and outpatient medication no evidence of having been on previous hypertensive medication, BP certainly above goal, given presentation #1 will maintain permissive hypertension pending further stroke workup and add regimen if becomes clinically appropriate with as needed agents per stroke protocol in the interim. #3. Chronic asthma: Per current list not on any chronic regimen, will have PRN albuterol, HOB, IS parameters. #4. Chronic Kidney Disease Stage III, unclear subtype per GFR trending: Admission BUN/Cr 13/1.32, GFR 55, previous baseline GFR in the 50s, baseline renal function 1.3-1.4, repeat BMP in AM. #5. Carotid disease: Status post prior carotid enterectomy, will continue patient aspirin, statin regimen, CTA head neck as noted above #6. Hyperlipidemia: Continue home statin regimen. AM FLP. #7. GERD: We will continue patient on PPI. #8. Gout: We will continue patient on allopurinol regimen. #9. DVT prophylaxis: Lovenox. #10. CODE status: Patient HCPOA and living will are not in place but patient notes that his who is present would be his decision-maker if he was unable. Discussed CODE status at length including difference between FULL code, DNR-CCA and DNR-CC status. Following discussions about the differences in these status, requested Full Code status. Advanced Care Planning Face to Face Time: 16 minutes. Charges/Coding Visit Charges Inpatient E&M: 97656 Init Hosp L2 Procedures Hospitalists Procedures: 68069 Advncd Care Plan 30 Min
[2024-02-14 18:37] LABS: Magnesium 2.1 mg/dL (1.6-2.6)
--- NOTE | 2024-02-14 19:11 | ECHOCS_ITS ---
Reason For Study: TIA/CVA Procedure This was a 2D Doppler, Color Flow transthoracic echocardiogram. Contrast injection was performed. Exam performed portable in patient room. Left Ventricle Normal left ventricle. The estimated ejection fraction is 55-60 %. Right Ventricle Normal right ventricle. Normal systolic function. Atria Normal left atrium. Normal right atrium. Mitral Valve The mitral valve is structurally normal. No prolapse or stenosis seen. Trivial mitral valve insufficiency. Tricuspid Valve Normal tricuspid valve. Trivial tricuspid valve insufficiency. Aortic Valve The aortic valve is not well visualized in the short axis view. Pulmonic Valve The pulmonic valve is not well visualized. Great Vessels Normal aortic root. Pericardium/Pleural No pericardial effusion. Medication Performed a rapid injection of agitated mix of 9 cc saline and 1cc air to assess for atrial septal defect. Diluted definity 2ml given slow IV push to enhance endocardial definition. MMode/2D Measurements & Calculations LVIDd: 4.6 cm IVSd: 0.94 cm Ao root diam: 3.5 cm LVIDs: 3.0 cm LVPWd: 0.91 cm RVDd: 4.3 cm FS: 33.4 % LAV(MOD-bp): 50.5 ml LA A4 area: 17.0 cm2 LA dimension(2D): 3.7 cm LAV(MOD-bp) Indexed: 23.8 ml/m2 LAV(MOD-sp2): 63.9 ml LAV(MOD-sp4): 39.5 ml TAPSE: 2.0 cm RA A4 area: 14.1 cm2 Time Measurements MV dec time: 0.22 sec Doppler Measurements & Calculations MV E max sebastián: 66.4 cm/sec Lat Peak E' Sebastián: 11.4 cm/sec Med Peak E' Sebastián: 6.5 cm/sec MV A max sebastián: 73.1 cm/sec E/E' lat: 5.8 E/E' med: 10.2 MV E/A: 0.91 MV dec slope: 302.0 cm/sec2 Ao V2 max: 95.4 cm/sec LV V1 max: 91.1 cm/sec Ao max P.6 mmHg LV V1 max P.3 mmHg Ao V2 mean: 68.2 cm/sec Ao mean P.1 mmHg Ao V2 VTI: 22.7 cm PA V2 max: 61.9 cm/sec TR max sebastián: 198.5 cm/sec TR max P.8 mmHg ECHO/Echo Complete W/ Contrast Interpretation Summary The estimated ejection fraction is 55-60 %. Normal LV systolic function Grade 1 diastolic dysfunction No significant valve abnormality Contrast echo using Definity was performed No prior echocardiogram to compare. Ordering Physician: Felisa Harley Referring Physician: Mauri Shi Performed By: Mariann Du RDCS, RVT
[2024-02-14] MEDS: 0.9% Normal Saline (1000mL) 1,000 ML 100 ML IV (20:15)
[2024-02-14] MEDS: Atorvastatin Calcium 10 MG Tablet PO (21:44)
[2024-02-15 03:20] VITALS: BP 164/82; PULSE 56; RESP 18; TEMP 36.4; O2SAT 99
[2024-02-15 03:49] VITALS: BMI 27.2
[2024-02-15 06:00] VITALS: BP 145/76; PULSE 61; RESP 18; TEMP 36.4; O2SAT 95
--- NOTE | 2024-02-15 07:16 | PN.HOSP_ITS ---
Reason for Visit Reason for Visit: Diagnoses Transient cerebral ischemic attack, unspecified (02/14/24) Subjective Subjective Patient with no acute events overnight per self and per nursing report. He notes he did not have any further marked headache or vision changes. Discussed ongoing workup which included negative MRI and need to await echocardiogram. Neurology evaluation with recommendation for continued baby aspirin and statin therapy. Lab workup did return with TSH normal range, cholesterol not marked appearing, magnesium 2.1 however hemoglobin A1c was mildly elevated 5.8% consistent with prediabetes. Patient denies fevers, chills, nausea, emesis, abdominal pain, chest pain or dyspnea. Objective Data Objective Data Vital Signs: Vital Signs Temp Pulse Resp BP Pulse Ox O2 Del Method 97.6 F L 61 18 145/76 H 95 Room Air 02/15/24 06:00 02/15/24 06:00 02/15/24 06:00 02/15/24 06:00 02/15/24 06:00 02/15/24 06:00 Oxygen Delivery Method Room Air Weight: 200 lb 13.458 oz Body Mass Index (BMI) 27.2 Intake & Output: Intake and Output for Last 24 Hours 02/13/24 02/14/24 02/15/24 23:59 23:59 23:59 Intake Total 1050 / 1050 Balance 1050 / 1050 Lab / Micro Data 02/15/24 06:25 02/15/24 06:25 Labs: Laboratory Results - last 24 hr 02/14/24 16:36: WBC 4.8, RBC 4.26 L, Hgb 13.2, Hct 40.6, MCV 95.3 H, MCH 31.0, MCHC 32.5, RDW Std Deviation 42.7, RDW Coeff of [place] 12.2, Plt Count 222, MPV 10.6, Immature Gran % (Auto) 0.400, Neut % (Auto) 50.5, Lymph % (Auto) 32.7, [place] % (Auto) 11.9 H, Eos % (Auto) 3.5, Baso % (Auto) 1.0, Absolute Neuts (auto) 2.4, Absolute Lymphs (auto) 1.57, Nucleated RBC % 0, PT 13.3, INR 1.0, APTT 42.0 H, Sodium 140, Potassium 4.3, Chloride 108 H, Carbon Dioxide 25.0, Anion Gap 7, BUN 13, Creatinine 1.32 H, Estim Creat Clear Calc 48.42, Est GFR (MDRD) Af Amer 66, Est GFR (MDRD) Non-Af 55 L, BUN/Creatinine Ratio 9.8 L, Glucose 100, Calcium 9.2, Magnesium 2.1, Troponin I High Sens 9 Radiography Diagnostic Testing: Radiology Impression Head/Neck CTA 02/14/24 16:42 IMPRESSION: Negative CT Brain, CTA Carotid, and CTA Brain. Electronically Signed: Prem Yang MD at 17:47 EDT , Chest X-Ray 02/14/24 17:03 IMPRESSION: No radiographic evidence of acute cardiopulmonary disease. Electronically Signed: Prem Yang MD at 17:34 EDT , Physical Exam Narrative Physical Examination: General: Awake, alert, oriented x 3 and cooperative, seated upright in the PCU bed, no acute distress, notes feeling well, did sleep some. Skin: Normal color, normal turgor, no icterus, no cyanosis. HEENT: AT/NC, EOMI, PERRLA, MMM, vision remains intact and normal. Lungs: Mildly diminished, greater bases, appropriate effort, no rales, ronchi or wheezing. Heart: Regular rate and rhythm; no gallop, rub audible. Abdomen: Soft, overweight, NTTP, ND, mildly hyperactive BS. Extremities: No cyanosis, clubbing, or edema. Neurological: Patient awake, alert, oriented as noted, cognitive function intact; pupils equally reactive to light and accommodation, cranial nerves grossly normal, vision intact, sensation intact, moving all 4 extremities, no focal deficits, strength preserved. Psychiatric: Affect appears normal, no acute evidence of depressive or anxiety feelings. Assessment & Plan Assessment/Plan (1) TIA (transient ischemic attack): PLAN: Plan The patient is an 84 y/o M w/ PMHx: Asthma, GERD, Gout, CKD stage III unclear subtype per GFR trending, HLD, Carotid disease s/p CEA who presents to the [facility] ED on 02/14/24 with history of awakening at 7:30 in the morning with vision changes reportedly stating that he felt as though he was looking at a broken glass which resolved after 20-25 minutes in addition to a mild headache that resolved as well however at approximately 3 PM he had return of his headache but no specific vision changes but his head hurt diffusely all over eventually prompting PCP call who recommended given the vision changes previously evaluation in the ED to assure no concern for TIA/stroke. #1. Transient vision changes with intermittent headache concerning for TIA versus atypical complex migraine: Admitted to PCU, MRI of the brain with no acute evidence of stroke, ECHO performed but awaiting read, PT/OT/Speech/Nutrition evaluation per protocol. Given MRI brain without acute findings will initiate regimen for elevated BP above goal now consistent more so with hypertension. Will maintain on aspirin, statin. TSH 2.35, FLP with triglyceride 80, cholesterol 130, LDL 65, VLDL 16, HDL 49, hemoglobin A1c 5.8%, magnesium 2.1. Pending Neurology consultation. Neurology evaluation with recommended continued baby aspirin and statin therapy. Once echocardiogram read if no concerning findings would plan to discharge home with continue baby aspirin, statin, diet and lifestyle changes given prediabetic status now and low-dose lisinopril with follow-up PCP evaluation for repeat BMP and continue BP monitoring. #2. Elevated BP without prior hypertensive diagnosis: From review of records and outpatient medication no evidence of having been on previous hypertensive medication, BP certainly above goal, given presentation #1 initially maintained permissive hypertension. Given MRI negative and still BP above goal will start low dose lisinopril and will need to continue to monitor BP outpatient and reassess renal function with primary care. #3. New Diagnosis Pre-Diabetes: Hemoglobin A1c only mildly elevated 5.8%, will encourage diet and lifestyle changes and follow-up hemoglobin A1c with PCP outpatient potentially 3 months following implementation of these changes. #4. Chronic asthma: Per current list not on any chronic regimen, will have PRN albuterol, HOB, IS parameters. #5. Chronic Kidney Disease Stage III, unclear subtype per GFR trending: Admission BUN/Cr 13/1.32, GFR 55, previous baseline GFR in the 50s, baseline renal function 1.3-1.4. 02/15/2024 BUN/creatinine 13/1.32. #6. Carotid disease: Status post prior carotid enterectomy, will continue patient aspirin, statin regimen, CTA head neck as noted above #7. Hyperlipidemia: Continue home statin regimen. FLP with triglyceride 80, cholesterol 130, LDL 65, VLDL 16, HDL 49. #8. GERD: We will continue patient on PPI. #9. Gout: We will continue patient on allopurinol regimen. #10. DVT prophylaxis: Lovenox. #11. CODE status: Patient HCPOA and living will are not in place but patient notes that his who is present would be his decision-maker if he was unable. Full Code status. Charges/Coding Visit Charges Inpatient E&M: 83971 Init Hosp L2
--- NOTE | 2024-02-15 07:30 | MRI_ITS ---
HISTORY: TIA. TECHNIQUE: Multiplanar and multisequence MR images of the brain were obtained without contrast. 296 images. COMPARISON: CT prior day. FINDINGS: BRAIN PARENCHYMA: Mild foci and small zones of increased T2 FLAIR signal in the bilateral cerebral white matter. No abnormal focus of restricted diffusion. No acute intracranial hemorrhage identified. CSF SPACES: Mild volume loss. No significant midline shift or other mass effect.No extra-axial fluid collection. VASCULAR SYSTEM: Major intracranial flow voids are maintained. PARANASAL SINUSES AND MASTOID AIR CELLS: Very mild paranasal sinus mucosal thickening. Trace fluid in the left mastoid air cells. ORBITS: Bilateral lens resections. MRI/Brain without Contrast IMPRESSION: No evidence for acute infarct. Electronically Signed: Fatuma Manzo MD at 9:44 EDT ,
[2024-02-15 07:54] LABS: Absolute Lymphocyte Count 1.35 X10^3/uL (0.83-4.51); Basophil# 0.03 X10^3/uL; Basophil% 0.7 % (0-1); Eosinophil# 0.22 X10^3/uL; Eosinophils% 5.3 % (0-5); Hematocrit 37.4 % (40-54); Hemoglobin 12.1 g/dL (13.0-16.5); Lymphocyte # 1.35 X10^3/ul (0.83-4.51); Lymphocyte % 32.3 % (19-41); Mean Corp Hgb Conc 32.4 g/dL (32-36); Mean Corpuscular Hgb 31.3 pg (27.0-32.0); Mean Corpuscular Volume 96.6 fL (80-94); Mean Platelet Vol. 10.9 fl (6.2-12.0); Monocyte# 0.54 X10^3/uL; Monocyte% 12.9 % (0-10); NRBC Flagged by Analyzer 0 % (0-5); Neutrophil # 2.03 X10^3/uL (2.7-7.7); Neutrophil % 48.6 % (47-70); Platelet Count 198 K/mm3 (150-450); RBC Distribution Width CV 12.2 % (11.6-14.6); RBC Distribution Width SD 43.4 fl (35.1-43.9); Red Blood Count 3.87 M/mm3 (4.6-6.2); White Blood Count 4.2 K/mm3 (4.4-11.0)
[2024-02-15 08:31] LABS: ALB/GLOB Ratio 1.1 RATIO (0.9-2.4); AST(SGOT) 25 U/L (15-37); Alanine Aminotransfer ALT/SGPT 53 U/L (16-61); Albumin, Serum 3.2 g/dL (3.2-5.0); Alkaline Phosphatase 52 U/L (45-117); Anion Gap 3 (5-15); BUN 12 mg/dL (7-18); BUN/Creat Ratio 9.6 RATIO (10-20); Calcium,Total 8.2 mg/dL (8.5-10.1); Chloride 112 mmol/L (98-107); Cholesterol 130 mg/dL (200); Creatinine, Serum 1.25 mg/dL (0.70-1.30); EST Glomerular Filtration Rate 59 mL/min (>60); Est Glom Filt Rate - Afr Amer 71 mL/min (>60); Estimated Creatinine Clearance 48.28 ml/min; Glucose 120 mg/dL (74-106); High Density Lipoprotein 49 mg/dL; Potassium 4.6 mmol/L (3.5-5.1); Protein, Total 6.2 g/dL (6.4-8.2); Sodium Level 142 mmol/L (136-145); Thyroid Stim Hormone (TSH) 2.35 uIU/mL (0.358-3.74); Triglycerides 80 mg/dL; Very Low Density Lipoprotein 16 mg/dL (5-40)
[2024-02-15 10:00] VITALS: BP 155/77; PULSE 58; RESP 16; TEMP 36.5; O2SAT 97
[2024-02-15 10:07] LABS: Hemoglobin A1c 5.8 % (3.8-5.6)
[2024-02-15] MEDS: Pantoprazole Sodium 20 MG Tablet PO (10:15)
[2024-02-15] MEDS: Aspirin 81 MG TAB.CHEW 162 MG PO (10:15)
[2024-02-15] MEDS: Enoxaparin 40 MG/0.4 ML Syringe SC (10:15)
--- NOTE | 2024-02-15 11:21 | CON.PCM.NE_ITS ---
Assessment and Plan: Neuro Assessment/Plan IRAJ AYALA is a 84 M with a past medical history of hypercholesterolemia, being evaluated by Teleneurology for vision changes and headache. MRI brain negative for stroke. CTA brain and neck without any significant stenosis. Vision changes seem most consistent with a migraine with aura event than TIA by description. Symptoms that go against TIA event include, headache following the event, no other associated neurologic symptom, no associated negative symptoms). However, his headache does not meet migraine diagnostic criteria in that there is no associated nausea/ light sensitivity. If assuming symptoms are vascular in etiology (I.e TIA) he is not considered high risk TIA per criteria, and would therefore not escalate treatment to DAP for this reason. Plan: 1. Recommend to continue ASA 81mg and home dose statin 2. TTE results pending 3. Recommend follow up with outpatient neurology I personally attended this patient and spent a total time of 65 minutes evaluating this patient including clinical assessment, review of chart, medical history imaging, and determining appropriate treatment and workup. HPI Consult Data Date of Consult: 02/15/24 HPI Narrative HPI Narrative: Iraj Ayala is an 84 year old gentleman with past medical history of hypercholesterolemia who presented to [place] ED on 02/14/24 for headache and a ssociated vision changes. He awoke at 730 am the morning of 02/13/2023 with bilateral vision changes. Vision changes described as straight line of short segments of broken glass, with associated prism quality. Denies vision loss. Also associated with flashes of while light and sparkles. Vision changes resolved after 20 to 30 minutes. Soon after vision changes started, he developed headache. Headache described as frontal but evolving the entire head at some point. Quality as dull, heart beat quality. Denies nausea/ photophobia. He presented to the ED at the request of his primary care doctor for further work- up for these symptoms. Blood pressure on arrival 173/88, HR 81, afebrile. Labs on arrival to the ED included normal WBC count and differential, creatinine and BUN at baseline (creatinine 1.38, BUN11), normal AST/ALT. LDL 65 and Hemoglobin A1c 5.8. He takes an aspirin daily and a statin daily.Of note, 24 years ago he had similar symptoms. He described he went to bend over when he experienced flashes of light in his visual field and soon after developed a severe headache. Does not feel like there are light sensitivity or nausea surrounding this headache either. He underwent TIA work-up for this event and eventually underwent a carotid endarterectomy for these symptoms. Besides this other event, no other real events of headache. No clear family history of migraine headache. FOR[facility], LAT[facility] Medical History Alcohol use Arthritis Asthma Back pain Gastric reflux Gout Gout High cholesterol History of stress test Hx of closed fracture of nasal bones Non-smoker Wears hearing aid Wears partial dentures Home Medications nitroglycerin 0.4 mg sublingual tablet 0.4 mg sublingual Q5-15M PRN chest pain #20 tabs 11/21/22 [Rx Last Taken Unknown] aspirin 325 mg tablet 162.5 mg PO DAILY 08/07/23 [History Last Taken 02/14/24] pantoprazole 20 mg tablet,delayed release 20 mg PO DAILY Reflux #60 tabs 01/17/24 [Rx Last Taken 02/14/24] simvastatin 20 mg tablet 20 mg PO QHS #60 tabs 01/17/24 [Rx Last Taken 02/13/24] carboxymethylcellulose sodium 1 % eye drops (Artificial Tears (carboxymethylcellulose)) 1 drp EACH EYE DAILY PRN dry eye(s) 02/14/24 [History Last Taken Unknown] nystatin 100,000 unit/gram topical powder 1 applic topical BID PRN skin irritation 02/14/24 [History Last Taken Unknown] lisinopril 5 mg tablet 5 mg PO DAILY #30 tabs 02/15/24 [Rx Last Taken Unknown] Allergy/AdvReac Type Severity Reaction Status Date / Time No Known Allergies Allergy Verified 02/14/24 16:12 Family History Father Diabetes Grandmother Diabetes Brother Diabetes Sister Diabetes Mother Breast cancer Psoriasis Surgical History History of cardiac catheterization History of carotid endarterectomy History of incision and drainage Hx laparoscopic cholecystectomy Hx of colonoscopy Hx of left cataract extraction Hx of shoulder surgery Social History household members: spouse housing: [place] [facility] Smoking Status: Never smoker alcohol intake: current alcohol intake frequency: a few times a week Alcohol type: beer substance use type: does not use what type of physical activity do you participate in: other details: Golf frequency: 3-4 times per week Vital Signs Vital Signs Vital Signs: 02/14/24 16:12 02/14/24 16:46 02/14/24 17:11 Temperature 97.1 F L Temperature Source Temporal Pulse Rate 81 66 Pulse Strength Respiratory Rate 18 13 Respiratory Effort Respiratory Depth Respiratory Pattern Blood Pressure 173/88 H 177/88 H Blood Pressure Mean 116 117 Blood Pressure Source Blood Pressure Position Blood Pressure Location Pulse Ox 97 99 Oxygen Delivery Method Room Air Room Air Room Air 02/14/24 17:11 02/14/24 17:30 02/14/24 18:00 Temperature Temperature Source Pulse Rate 66 65 67 Pulse Strength Respiratory Rate 13 13 16 Respiratory Effort Respiratory Depth Respiratory Pattern Blood Pressure 177/88 H 178/73 H 157/83 H Blood Pressure Mean 117 108 107 Blood Pressure Source Blood Pressure Position Blood Pressure Location Pulse Ox 99 99 95 Oxygen Delivery Method Room Air Room Air Room Air 02/14/24 18:04 02/14/24 18:30 02/14/24 19:19 Temperature 98.4 F 97.5 F L Temperature Source Temporal Pulse Rate 63 64 88 Pulse Strength Respiratory Rate 13 12 16 Respiratory Effort Respiratory Depth Respiratory Pattern Blood Pressure 129/117 H 167/82 H 173/87 H Blood Pressure Mean 121 110 115 Blood Pressure Source Monitor Blood Pressure Position Semi-Fowlers Blood Pressure Location Left Arm Pulse Ox 96 97 98 Oxygen Delivery Method Room Air Room Air 02/14/24 22:00 02/14/24 22:57 02/14/24 22:57 Temperature Temperature Source Pulse Rate Pulse Strength Respiratory Rate Respiratory Effort Normal Normal Respiratory Depth Normal Normal Respiratory Pattern Normal Normal Blood Pressure Blood Pressure Mean Blood Pressure Source Blood Pressure Position Blood Pressure Location Pulse Ox 98 Oxygen Delivery Method Room Air Room Air Room Air 02/14/24 22:00 02/15/24 03:20 02/15/24 06:00 Temperature 97.6 F L 97.6 F L Temperature Source Temporal Temporal Pulse Rate 56 L 61 Pulse Strength Normal (2+) Respiratory Rate 18 18 Respiratory Effort Respiratory Depth Respiratory Pattern Blood Pressure 164/82 H 145/76 H Blood Pressure Mean 109 99 Blood Pressure Source Monitor Monitor Blood Pressure Position Semi-Fowlers Semi-Fowlers Blood Pressure Location Left Arm Right Arm Pulse Ox 99 95 Oxygen Delivery Method Room Air Room Air 02/15/24 10:00 02/15/24 10:23 02/15/24 10:24 Temperature 97.7 F L Temperature Source Oral Pulse Rate 58 L Pulse Strength Normal (2+) Respiratory Rate 16 Respiratory Effort Normal Non-Labored Respiratory Depth Normal Respiratory Pattern Normal Blood Pressure 155/77 H Blood Pressure Mean 103 Blood Pressure Source Manual Blood Pressure Position Semi-Fowlers Blood Pressure Location Right Arm Pulse Ox 97 Oxygen Delivery Method Room Air Room Air Weight Weight: 91.1 kg Body Mass Index (BMI) 27.2 EEG Results Procedure Details EEG Procedure Details: IRAJ AYALA is a 84 year old M with a past medical history of , who presents for evaluation of Electroencephalogram on DATE at TIME NIHSS NIHSS Nursing Documentation NIHSS Nursing Documentation: NIHSS: Ischemic Stroke/TIA Start: 02/14/24 19:11 Text: For PCU Patients: NIH and Neuro Check every 4 Status: Complete hours, PRN and with change in RN caregiver. Freq: [id number] Protocol: Activity Type Activity Date Activity User E-sign Co-sign Detail Recorded Client Recorded Date Recorded By Document 02/15/24 06:00 [id number] 02/15/24 06:19 02/15/24 06:00 NIH Stroke Scale [NIHSS] A score of 0 is normal or asymptomatic . Total possible score is 42. Inpatient: RN or Physician to activate a stroke alert for onset of new stroke symptoms or with NIHSS increase >/= 3 points. Following change in neurological status, NIHSS will be performed per physician order or more frequently PRN. -1a. Level of Consciousness Alert; keenly responsive -1b. LOC Questions Answers BOTH questions correctly. -1c. LOC Commands Performs both tasks correctly . -2. Best Gaze Normal -3. Visual No visual loss -4. Facial Palsy Normal symmetrical movements -5a. Left Arm No drift; arm holds 90 (or 45 ) degrees for full 10 seconds -5b. Right Arm No drift; arm holds 90 (or 45 ) degrees for full 10 seconds -6a. Left Leg No drift; leg holds 30-degree position for full 5 seconds -6b. Right Leg No drift; leg holds 30-degree position for full 5 seconds -7. Limb Ataxia Absent -8. Sensory Normal; no sensory loss -9. Best Language No aphasia; normal -10. Dysarthria Normal -11. Extinction and Inattention No abnormality -Total 0 Query Text:A score of 0 is normal or asymptomatic. Total possible score is 42 . ED: Notify Physician for NIHSS increase by > / = 3 points. Inpatient: RN or Physician to activate a stroke alert for NIHSS increase of > / = 3 points. Coma Scale [Assess] -Eye Opening Spontaneous -Motor Obeys Commands -Verbal Oriented [Total] -Coma Scale Total 15 Physical Exam Neuro Neuro Narrative: Mental Status: The patient was alert and oriented to person, place, month, and year Language: speech is fluent and without dysarthria Cranial Nerves: Pupils are equal and reactive to light.? EOMI, visual mcclain full, face is symmetric at rest and with activation, hearing is intact to conversational tone, tongue protrudes midline. Soft palate raises equally, no uvular deviation. Facial sensation is intact to light touch, and equal bilaterally Motor: ?All extremities are antigravity. No pronator drift noted. Muscle bulk appears normal. Coordination: No dysmetria on [id number], finger follow finger or [id number]. NIH Stroke Scale (NIHSS) 0 1a. Level of Consciousness; 0-alert? 1-drowsy? 2-stupor? 3-comatose 0 1b. LOC Questions?? month and age; 0-b oth?? 1-one?? 2-neither 0 1c. LOC Commands?? open/close eyes, gr ip/release non-paretic hand; 0-both 1- one 2-neither 0 2. Best Gaze; 0-nl??? 1-partial??? 2-f orced gaze 0 3. Visual Mcclain; 0-No visual loss. 1-Partial hemianopia 2-Complete 3- Bilateral 0 0 4. Facial Palsy; 0-none? 1-minor? 2- partial??? 3-complete 0 5. Motor - R arm; 0-No drift? 1-Drif t? 2-Some antigravity? 3-No antigravity? 4-No movement 0 0 6. Motor - R leg; 0-No drift? 1-Drif t? 2-Some antigravity? 3-No antigravity? 4-No movement 0 7. Motor - L arm; 0-No drift? 1-Drif t? 2-Some antigravity? 3-No antigravity? 4-No movement 0 8. Motor - L leg; 0-No drift? 1-Drif t? 2-Some antigravity? 3-No antigravity? 4-No movement 0 9. Limb Ataxia; 0 absent??? 1 - 1lim b??? 2 - 2 limbs 0 10. Sensory; 0-nl? 1-partial loss? ? 2-dense loss 0 11. Best Language; 0-nl? 1-mild/mod ??? 2-severe? 3-mute?? 0 12. Dysarthria; 0-nl? 1-mild/mod??? 2-severe? x-untestable 0 13. Extinction and Inattention (form erly Neglect); 0-none?? 1-partial??? 2-complete TOTAL SCORE 0 ? Lab / Micro Data 02/15/24 06:25 02/15/24 06:25 Labs: Laboratory Results - last 24 hr 02/14/24 16:36: WBC 4.8, RBC 4.26 L, Hgb 13.2, Hct 40.6, MCV 95.3 H, MCH 31.0, MCHC 32.5, RDW Std Deviation 42.7, RDW Coeff of [place] 12.2, Plt Count 222, MPV 10.6, Immature Gran % (Auto) 0.400, Neut % (Auto) 50.5, Lymph % (Auto) 32.7, [place] % (Auto) 11.9 H, Eos % (Auto) 3.5, Baso % (Auto) 1.0, Absolute Neuts (auto) 2.4, Absolute Lymphs (auto) 1.57, Nucleated RBC % 0, PT 13.3, INR 1.0, APTT 42.0 H, Sodium 140, Potassium 4.3, Chloride 108 H, Carbon Dioxide 25.0, Anion Gap 7, BUN 13, Creatinine 1.32 H, Estim Creat Clear Calc 48.42, Est GFR (MDRD) Af Amer 66, Est GFR (MDRD) Non-Af 55 L, BUN/Creatinine Ratio 9.8 L, Glucose 100, Calcium 9.2, Magnesium 2.1, Troponin I High Sens 9 02/15/24 06:25: WBC 4.2 L, RBC 3.87 L, Hgb 12.1 L, Hct 37.4 L, MCV 96.6 H, MCH 31.3, MCHC 32.4, RDW Std Deviation 43.4, RDW Coeff of [place] 12.2, Plt Count 198, MPV 10.9, Immature Gran % (Auto) 0.200, Neut % (Auto) 48.6, Lymph % (Auto) 32.3, [place] % (Auto) 12.9 H, Eos % (Auto) 5.3 H, Baso % (Auto) 0.7, Absolute Neuts (auto) 2.0, Absolute Lymphs (auto) 1.35, Nucleated RBC % 0, Sodium 142, Potassium 4.6, Chloride 112 H, Carbon Dioxide 27.0, Anion Gap 3 L, BUN 12, Creatinine 1.25, Estim Creat Clear Calc 48.28, Est GFR (MDRD) Af Amer 71, Est GFR (MDRD) Non-Af 59 L, BUN/Creatinine Ratio 9.6 L, Glucose 120 H, Hemoglobin A1c 5.8 H, Calcium 8.2 L, Total Bilirubin 0.60, AST 25, ALT 53, Alkaline Phosphatase 52, Total Protein 6.2 L, Albumin 3.2, Globulin 3.0, Albumin/Globulin Ratio 1.1, Triglycerides 80, Cholesterol 130, LDL Cholesterol 65, VLDL Cholesterol 16, HDL Cholesterol 49, TSH 2.35 Imaging Radiology Impression Head/Neck CTA 02/14/24 16:42 IMPRESSION: Negative CT Brain, CTA Carotid, and CTA Brain. Electronically Signed: Prem Yang MD at 17:47 EDT Reading Location ID and State: [facility] / OR Tel , Service support , Chest X-Ray 02/14/24 17:03 IMPRESSION: No radiographic evidence of acute cardiopulmonary disease. Electronically Signed: Prem Yang MD at 17:34 EDT , Brain MRI 02/15/24 07:30 IMPRESSION: No evidence for acute infarct. Electronically Signed: Fatuma Manzo MD at 9:44 EDT , Active Medications Active Medications Active Medications: Current Medications Generic Name Dose Route Start Last Admin Trade Name Freq PRN Reason Stop Dose Admin Acetaminophen 650 mg 02/14/24 19:11 Acetaminophen 325 Mg Tablet PO Q4H PRN PRN Fever, pain 1-08/06 Al Hydroxide/Mg Hydroxide 30 ml 02/14/24 19:11 Mag Hydrox/Al Hydrox/Simeth 30 Ml Udc PO Q6H PRN PRN Gastric Burning Albuterol Sulfate 2.5 mg 02/14/24 19:11 Albuterol 2.5 Mg/3 Ml Vial.Neb. INHALATION Q2H PRN PRN Dyspnea, wheezing Aspirin 162 mg 02/15/24 08:00 02/15/24 10:15 Aspirin 81 Mg Tab.Chew PO 162 mg BREAKFAST JASMINA Administration Atorvastatin Calcium 10 mg 02/14/24 22:00 02/14/24 21:44 Atorvastatin Calcium 10 Mg Tablet PO 10 mg QHS JASMINA Administration Enoxaparin Sodium 40 mg 02/15/24 10:00 02/15/24 10:15 Enoxaparin 40 Mg/0.4 Ml Syringe SC 40 mg DAILY JASMINA Administration Glycerin/Hypromellose/Polyethylene 1 drp 02/14/24 19:31 Glycerin/Hypromellose/[id number] 15 Ml Bottle EACH EYE DAILY PRN dry eye(s) Guaifenesin 20 ml 02/14/24 19:11 Guaifenesin 10 Ml Udc (200mg/10ml) PO Q4H PRN PRN COUGH Hydralazine HCl 5 mg 02/14/24 19:11 Hydralazine 20 Mg/Ml Vial IV 02/15/24 19:12 Q30M PRN maintain BP parameters with HR <60 Melatonin 3 mg 02/14/24 19:11 Melatonin 3 Mg Tablet PO QHS PRN PRN INSOMNIA Ondansetron HCl 4 mg 02/14/24 19:11 Ondansetron 4 Mg/2 Ml Vial IV Q8H PRN PRN NAUSEA/VOMITING Pantoprazole Sodium 20 mg 02/15/24 10:00 02/15/24 10:15 Pantoprazole Sodium 20 Mg Tablet PO 20 mg DAILY JASMINA Administration Prochlorperazine Edisylate 5 mg 02/14/24 19:11 Prochlorperazine 10 Mg/2 Ml Vial IV Q4H PRN PRN Breakthrough Nausea/Vomiting Senna/Docusate Sodium 2 tablet 02/14/24 19:11 Senna/Docusate Sodium 1 Tablet PO BID PRN PRN Constipation Sodium Chloride 10 - 40 ml 02/14/24 22:14 0.9% Saline Lock 10 Ml Syringe IV UD PRN SALINE FLUSH
--- NOTE | 2024-02-15 11:57 | DCINST_ITS ---
Discharge Instructions Diet Discharge Diet: - (Recommend given new prediabetes diagnosis to trial Diabetic diet 1800 calorie version.) Activity Discharge Activity: Return to Normal Activity May resume sexual activity in: No Restrictions Dressing / Incision Call your doctor if you observe: Fever of 101 or Higher, Shortness of breath, Chest pain, Increased palpitations (irregular heartbeat) and Uncontrolled pain Follow Up Care Test Results: Test results from this visit will be discussed in further detail at your follow- up appointment, if applicable. Discharge Plan Admission Admit Date/Time: 02/14/24 18:16 Primary Reason for Your Visit: TIA, New Diagnosis Hypertension, New Diagnosis Prediabetes Attending Provider: Felisa Harley Primary Care Provider: Mauri Shi Consulting Providers: Moo Baig; Harmony Downs; Julissa Joseph; Anne Coats; Bianca Bell; Long Gauthier; Winsome Moreno; Javid David; Kiel Florez; Carlita Urban; Robbie Gonzalez; Jennifer Núñez; Donta Lopez; Kalli Irvin; Baldev German; Milad Poole; Alex Daugherty; Day Gómez; Corey Olivera Instructions Patient Instructions: Prediabetes, Healthy Meals for Diabetes, Hypertension Dc, TIA Dc, Diabetes: Meal Planning Additional Instructions / Restrictions: DISCHARGE DIAGNOSES: #1. Transient vision changes with intermittent headache concerning for Transient Ischemic Attack: MRI of the brain with no acute evidence of stroke TSH 2.35 FLP with triglyceride 80, cholesterol 130, LDL 65, VLDL 16, HDL 49 Hemoglobin A1c 5.8% Magnesium 2.1 Neurology recommendation to continue aspirin therapy and statin therapy. #2. Elevated BP without prior hypertensive diagnosis with trending consistent with Hypertension: Started on low dose lisinopril with plan outpatient with primary care to continue to monitor BP and reassess renal function with primary care. #3. New Diagnosis Pre-Diabetes: Hemoglobin A1c only mildly elevated 5.8% however this is consistent with prediabetes. We encourage diet and lifestyle changes and follow-up hemoglobin A1c with your primary care physician outpatient potentially 3 months following implementation of these changes. Discharge Orders/Prescriptions Prescriptions: New lisinopril 5 mg tablet 5 mg PO DAILY Qty: 30 0RF Continued aspirin 325 mg tablet 162.5 mg PO DAILY Patient Comments: TAKE ONE HALF TABLET DAILY nitroglycerin 0.4 mg tablet, sublingual 0.4 mg sublingual Q5-15M PRN (Reason: chest pain) Qty: 20 0RF Rx Instructions: do not exceed 3 doses per episode Artificial Tears (cmc) 1 % drops 1 drp EACH EYE DAILY PRN (Reason: dry eye(s)) nystatin 100,000 unit/gram powder 1 applic topical BID PRN (Reason: skin irritation) pantoprazole 20 mg tablet,delayed release (DR/EC) 20 mg PO DAILY Qty: 60 2RF simvastatin 20 mg tablet 20 mg PO QHS Qty: 60 2RF Referrals / Follow Up: Mauri Shi DO [Primary Care Provider] - (Follow-up within 1 week to review admission, have repeat basic metabolic panel to reassess renal function given blood pressure medication start and have repeat blood pressure assessments.) Disposition Disposition (needs filled in before D/C Order can be placed): Home, Self Care
[2024-02-15 12:46] VITALS: BP 151/77; PULSE 63; RESP 16; TEMP 36.4; O2SAT 98
[2024-02-15] MEDS: Lisinopril 5 MG Tablet PO (12:48)
[2024-02-15 13:30] VITALS: BMI 27.2
--- NOTE | 2024-02-15 14:07 | DS.PCM_ITS ---
Providers Date of Admission: 02/14/24 Date of Discharge: 02/15/24 Primary Care Physician: Dr. Mauri Shi, DO Consultations 02/14/24 19:11 Consult: Tele-Neurology Routine Consulting Provider: [facility] Reason for Consult: Acute Ischemic Stroke/TIA EMERGENT Consult: No Notified: No Date Notified: 02/14/24 Time Notified: 18:18 Nursing Unit Staff Notify [facility] of Tele-Neurology Consult: Yes 02/15/24 08:04 [facility] [Consult: Tele-Neurology] Routine Consulting Provider: [facility] Reason for Consult: TIA EMERGENT Consult: No MD Notified: Yes Date Notified: 02/15/24 Time Notified: 08:04 Method of Notification: Answering Service Comments:: Notified per credit collections manager Nursing Unit Staff Notify [facility] of Tele-Neurology Consult: Yes Reason For Visit: TIA Diagnosis Discharge Diagnosis (1) TIA (transient ischemic attack): Status: Acute Code(s): G45.9 - Transient cerebral ischemic attack, unspecified Plan: DISCHARGE DIAGNOSES: #1. Transient vision changes with intermittent headache concerning for TIA #2. Elevated BP without prior hypertensive diagnosis, new diagnosis Hypertension #3. New Diagnosis Pre-Diabetes (Hemoglobin A1c only mildly elevated 5.8%) #4. Chronic asthma #5. Chronic Kidney Disease Stage III, unclear subtype per GFR trending #6. Carotid disease s/p CEA #7. Hyperlipidemia #8. GERD #9. Gout #10. CODE status: Patient HCPOA and living will are not in place but patient notes that his who is present would be his decision-maker if he was unable. Full Code status. Medications at Discharge Home Medications nitroglycerin 0.4 mg sublingual tablet 0.4 mg sublingual Q5-15M PRN chest pain #20 tabs 11/21/22 aspirin 325 mg tablet 162.5 mg PO DAILY heart health 08/07/23 pantoprazole 20 mg tablet,delayed release 20 mg PO DAILY Reflux #60 tabs 01/17/24 simvastatin 20 mg tablet 20 mg PO QHS cholesterol #60 tabs 01/17/24 carboxymethylcellulose sodium 1 % eye drops (Artificial Tears (carboxymethylcellulose)) 1 drp EACH EYE DAILY PRN dry eye(s) 02/14/24 nystatin 100,000 unit/gram topical powder 1 applic topical BID PRN skin irritation 02/14/24 lisinopril 5 mg tablet 5 mg PO DAILY #30 tabs 02/15/24 Hospital Course Operations None Procedures 2-D Echocardiogram and EKG Summary of Care Provided Minutes Spent on Discharge: 35 Hospital Course: The patient is an 84 y/o M w/ PMHx: Asthma, GERD, Gout, CKD stage III unclear subtype per GFR trending, HLD, Carotid disease s/p CEA who presented to the [facility] ED on 02/14/24 with history of awakening at 7:30 in the morning with vision changes reportedly stating that he felt as though he was looking at a broken glass which resolved after 20-25 minutes in addition to a mild headache that resolved as well however at approximately 3 PM he had return of his headache but no specific vision changes but his head hurt diffusely all over eventually prompting PCP call who recommended given the vision changes previously evaluation in the ED to assure no concern for TIA/stroke. Admitted to PCU, MRI of the brain with no acute evidence of stroke, ECHO unremarkable with negative bubble study, PT/OT/Speech/Nutrition evaluation per protocol. Given MRI brain without acute findings initiated low dose lisinopril regimen for elevated BP above goal consistent more so with hypertension. Maintained on aspirin, statin. TSH 2.35, FLP with triglyceride 80, cholesterol 130, LDL 65, VLDL 16, HDL 49, HgBA1c 5.8%, magnesium 2.1. Neurology evaluation with recommended continued baby aspirin and statin therapy. Recommended patient continue baby aspirin, statin, diet and lifestyle changes given prediabetic status now with follow-up HgbA1c per PCP discretion but potentially in 3 months following these implementations and low-dose lisinopril with follow-up PCP evaluation for repeat BMP and continue BP monitoring. Given patient clinical stability patient discharged to home with medication addition/changes as noted with PCP follow-up in 3-5 days. Weight / BMI Weight Weight: 200 lb 13.458 oz Body Mass Index (BMI) 27.2 ABG / Lab / Microbiology Data 02/15/24 06:25 02/15/24 06:25 Laboratory: Laboratory Results - last 24 hr 02/14/24 16:36: WBC 4.8, RBC 4.26 L, Hgb 13.2, Hct 40.6, MCV 95.3 H, MCH 31.0, MCHC 32.5, RDW Std Deviation 42.7, RDW Coeff of [place] 12.2, Plt Count 222, MPV 10.6, Immature Gran % (Auto) 0.400, Neut % (Auto) 50.5, Lymph % (Auto) 32.7, [place] % (Auto) 11.9 H, Eos % (Auto) 3.5, Baso % (Auto) 1.0, Absolute Neuts (auto) 2.4, Absolute Lymphs (auto) 1.57, Nucleated RBC % 0, PT 13.3, INR 1.0, APTT 42.0 H, Sodium 140, Potassium 4.3, Chloride 108 H, Carbon Dioxide 25.0, Anion Gap 7, BUN 13, Creatinine 1.32 H, Estim Creat Clear Calc 48.42, Est GFR (MDRD) Af Amer 66, Est GFR (MDRD) Non-Af 55 L, BUN/Creatinine Ratio 9.8 L, Glucose 100, Calcium 9.2, Magnesium 2.1, Troponin I High Sens 9 02/15/24 06:25: WBC 4.2 L, RBC 3.87 L, Hgb 12.1 L, Hct 37.4 L, MCV 96.6 H, MCH 31.3, MCHC 32.4, RDW Std Deviation 43.4, RDW Coeff of [place] 12.2, Plt Count 198, MPV 10.9, Immature Gran % (Auto) 0.200, Neut % (Auto) 48.6, Lymph % (Auto) 32.3, R[place] % (Auto) 12.9 H, Eos % (Auto) 5.3 H, Baso % (Auto) 0.7, Absolute Neuts (auto) 2.0, Absolute Lymphs (auto) 1.35, Nucleated RBC % 0, Sodium 142, Potassium 4.6, Chloride 112 H, Carbon Dioxide 27.0, Anion Gap 3 L, BUN 12, Creatinine 1.25, Estim Creat Clear Calc 48.28, Est GFR (MDRD) Af Amer 71, Est GFR (MDRD) Non-Af 59 L, BUN/Creatinine Ratio 9.6 L, Glucose 120 H, Hemoglobin A1c 5.8 H, Calcium 8.2 L, Total Bilirubin 0.60, AST 25, ALT 53, Alkaline Phosphatase 52, Total Protein 6.2 L, Albumin 3.2, Globulin 3.0, Albumin/Globulin Ratio 1.1, Triglycerides 80, Cholesterol 130, LDL Cholesterol 65, VLDL Cholesterol 16, HDL Cholesterol 49, TSH 2.35 Radiography Diagnostic Testing: Radiology Impression Head/Neck CTA 02/14/24 16:42 IMPRESSION: Negative CT Brain, CTA Carotid, and CTA Brain. Electronically Signed: Prem Yang MD at 17:47 EDT , Chest X-Ray 02/14/24 17:03 IMPRESSION: No radiographic evidence of acute cardiopulmonary disease. Electronically Signed: Prem Yang MD at 17:34 EDT , Brain MRI 02/15/24 07:30 IMPRESSION: No evidence for acute infarct. Electronically Signed: Fatuma Manzo MD at 9:44 EDT , D/C Instructions Discharge Diet: - (Recommend given new prediabetes diagnosis to trial Diabetic diet 1800 calorie version.) May resume sexual activity in: No Restrictions Call your doctor if you observe: Fever of 101 or Higher, Shortness of breath, Chest pain, Increased palpitations (irregular heartbeat) and Uncontrolled pain Meaningful Use Info Meaningful Use Meaningful Use Diagnoses (Choose all that apply): None applicable Ischemic Stroke Statin Dosing Therapy Reference: STATIN DOSE THERAPY REFERENCE: * Patients > 75 years receive moderate or high dose statin therapy. * Patients 75 years or YOUNGER should receive HIGH intensity statin dose unless contraindicated. You will be required to document reason for non-treatment if statin daily dose does not meet guidelines. HIGH DOSE STATIN THERAPY DAILY Atorvastatin > than or = to 40 mg Rosuvastatin > than or = to 20 mg Amlodipine + Atorvastatin > than or = to 2.5/40 mg Ezetimibe + Simvastatin 10/80 mg Simvastatin 80mg Discharge Plan Admission Admit Date/Time: 02/14/24 18:16 Primary Reason for Your Visit: TIA, New Diagnosis Hypertension, New Diagnosis Prediabetes Attending Provider: Felisa Harley Primary Care Provider: Mauri Shi Consulting Providers: Moo Baig; Harmony Downs; Julissa Joseph; Anne Coats; Bianca Bell; Long Gauthier; Winsome Moreno; Javid David; Kiel Florez; Carlita Urban; Robbie Gonzalez; Jennifer Núñez; Donta Lopez; Kalli Irvin; Baldev German; Milad Poole; Alex Daugherty; Day Gómez; Corey Olivera Instructions Patient Instructions: Prediabetes, Healthy Meals for Diabetes, Hypertension Dc, TIA Dc, Diabetes: Meal Planning Additional Instructions / Restrictions: DISCHARGE DIAGNOSES: #1. Transient vision changes with intermittent headache concerning for Transient Ischemic Attack: MRI of the brain with no acute evidence of stroke TSH 2.35 FLP with triglyceride 80, cholesterol 130, LDL 65, VLDL 16, HDL 49 Hemoglobin A1c 5.8% Echocardiogram unremarkable with negative bubble study Magnesium 2.1 Neurology recommendation to continue aspirin therapy and statin therapy. #2. Elevated BP without prior hypertensive diagnosis with trending consistent with Hypertension: Started on low dose lisinopril with plan outpatient with primary care to continue to monitor BP and reassess renal function with primary care. #3. New Diagnosis Pre-Diabetes: Hemoglobin A1c only mildly elevated 5.8% however this is consistent with prediabetes. We encourage diet and lifestyle changes and follow-up hemoglobin A1c with your primary care physician outpatient potentially 3 months following implementation of these changes. Discharge Orders/Prescriptions Prescriptions: New lisinopril 5 mg tablet 5 mg PO DAILY Qty: 30 0RF Continued aspirin 325 mg tablet 162.5 mg PO DAILY Patient Comments: TAKE ONE HALF TABLET DAILY nitroglycerin 0.4 mg tablet, sublingual 0.4 mg sublingual Q5-15M PRN (Reason: chest pain) Qty: 20 0RF Rx Instructions: do not exceed 3 doses per episode Artificial Tears (cmc) 1 % drops 1 drp EACH EYE DAILY PRN (Reason: dry eye(s)) nystatin 100,000 unit/gram powder 1 applic topical BID PRN (Reason: skin irritation) pantoprazole 20 mg tablet,delayed release (DR/EC) 20 mg PO DAILY Qty: 60 2RF simvastatin 20 mg tablet 20 mg PO QHS Qty: 60 2RF Referrals / Follow Up: Mauri Shi DO [Primary Care Provider] - (Follow-up within 1 week to review admission, have repeat basic metabolic panel to reassess renal function given blood pressure medication start and have repeat blood pressure assessments.) Disposition Disposition (needs filled in before D/C Order can be placed): Home, Self Care Charges/Coding Visit Charges Inpatient E&M: 67775 Disch Hosp >30min
[2024-02-15 14:36] VITALS: BP 151/80; PULSE 67; RESP 16; TEMP 36.5; O2SAT 100
== END 2024-02-15 11:52 | disposition home or self-care (01) ==
LOC: ED 17:49 → PCU 18:29
PROVIDERS: Admitting Provider Family Medicine; Emergency Provider Emergency Medicine; PCP Family Medicine; Visit Provider Family Medicine
DX: G45.9 Transient cerebral ischemic attack, unspecified (principal); N18.30 Chronic kidney disease, stage 3 unspecified; E78.00 Pure hypercholesterolemia, unspecified; Z79.82 Long term (current) use of aspirin; Z79.899 Other long term (current) drug therapy; J45.909 Unspecified asthma, uncomplicated; K21.9 Gastro-esophageal reflux disease without esophagitis; M10.9 Gout, unspecified; R03.0 Elevated blood-pressure reading, without diagnosis of hypertension; H53.8 Other visual disturbances; R29.700 NIHSS score 0
CPT/HCPCS: 36415; 70496; 70498; 70551; 71045; 80048; 80053; 80061; 83036; 83735; 84443; 84484; 85025; 85610; 85730; 92523; 92610; 93005; 93306; 94668; 94762; 96360; 96361; 96372; 97802; 99221; 99252; 99285; J7030; Q9957; Q9967; C8929; G0378; G0463

== ENCOUNTER → 2025-03-19 | Outpatient (CLI) | payer MEDICARE, SELFPAY ==
--- NOTE | 2025-03-19 11:27 | STRESSREP_ITS ---
Stress Test Report Date: 03/19/2025 Procedure: Exercise tolerance test/imaging study Indications: Chest pain Consent: Per the patient Procedure: The patient exercised on a Raza protocol for 4 minutes and 30 seconds achieving a peak heart rate of 133 bpm (98% predicted maximal heart rate) with a peak blood pressure 210/70 mmHg and a peak MET capacity of 7 METs. The baseline ECG demonstrated normal sinus rhythm. The peak exercise ECG demonstrated no significant ischemic changes. EKG during recovery revealed no significant ischemic changes [There were no cardiac dysrhythmias pretest, during exercise, or recovery]. The functional capacity was considered excellent for age. There was [no complaint of chest discomfort during exercise or recovery]. The examination was discontinued secondary to leg fatigue. Impression: 1. Technically adequate (percent predicted maximal heart rate greater than 85%) exercise tolerance test 2. Stress test is negative for exercise-induced EKG changes of ischemia 3. The test test is negative for exercise-induced chest pain 4. Functional capacity is excellent for age 5. Nuclear images pending Myocardial perfusion imaging study: Technique: The patient was injected with 13.9 mCi of technetium 99m Cardiolite and subsequently rest SPECT Cardiolite nuclear imaging was obtained in the horiz ontal long, vertical long, and short axis views. The patient exercised on a Raza protocol. Please see above for details. The patient was injected with 44.1 mCi of technetium 99m Cardiolite and subsequently stress SPECT Cardiolite nuclear imaging was obtained in the horizontal long, vertical long, and short axis views. A gated Cardiolite study at peak stress was obtained. Interpretation: Rest and stress SPECT Cardiolite nuclear imaging status post realignment, normalization, and attenuation correction, demonstrates no evidence of significant ischemia or infarction. The gated Cardiolite study demonstrates no significant regional wall motion abnormalities. The reported LVEF is 67%. Impression: 1. There is no evidence of significant ischemia or infarction. 2. The gated Cardiolite study reports an LVEF of 67%. This note was generated with [employer] software. It may contain incorrect words, spelling, and punctuation that were not noted in checking the note before signing.
== END | disposition home or self-care (01) ==
PROVIDERS: PCP Family Medicine; Referring Provider Family Medicine; Visit Provider Family Medicine
DX: R07.9 Chest pain, unspecified (principal)
CPT/HCPCS: 78452; 93017; A9500

== ENCOUNTER → 2025-07-20 | Outpatient (CLI) | payer MEDICARE, SELFPAY ==
[2025-07-20 15:16] LABS: Hematocrit 29.2 % (40-54); Hemoglobin 9.4 g/dL (13.0-16.5); Immature Granulocytes Count 0.010 X10^3/uL (0.0-0.0); Mean Corp Hgb Conc 32.2 g/dL (32-36); Mean Corpuscular Volume 92.4 fL (80-94); Mean Platelet Vol. 10.4 fl (6.2-12.0); NRBC Flagged by Analyzer 0 % (0-5); Platelet Count 238 K/mm3 (150-450); RBC Distribution Width CV 15.9 % (11.6-14.6); RBC Distribution Width SD 53.7 fl (35.1-43.9); Red Blood Count 3.16 M/mm3 (4.6-6.2); White Blood Count 4.0 K/mm3 (4.4-11.0)
[2025-07-20 15:54] LABS: FOLATES,SERUM (FOLIC ACID) 11.50 ng/mL (4.60-34.80)
[2025-07-20 15:56] LABS: Ferritin 39 ng/mL (37-417); Vitamin B12 222 pg/mL (180-914)
[2025-07-20 16:06] LABS: Immature Reticulocyte Fraction 16.90 % (3.00-15.90); Reticulocyte Count 3.10 % (0.5-1.5)
[2025-07-20 16:15] LABS: Iron 327 ug/dL (65-175); Iron Binding Capacity,Unsat < 17 ug/dL (228-428)
== END | disposition home or self-care (01) ==
LOC: BIMLAB 12:10
PROVIDERS: Nurse Practitioner Family; PCP Family Medicine; Referring Provider Family Medicine; Visit Provider Family Medicine
DX: D64.9 Anemia, unspecified (principal)
CPT/HCPCS: 36415; 82607; 82728; 82746; 83540; 83550; 85025; 85045

== ENCOUNTER 2025-08-20 08:14 | Day surgery (SDC) | payer MEDICARE, SELFPAY ==
--- NOTE | 2025-08-18 15:38 | PAT.ANE_ITS ---
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 When Was Last Pacemaker Check QUESTION #4 FULL TEXT: You/Your Family Experience fever (hyperthermia) with Anesthesia Last Oral Intake Last Oral intake: Last Oral Intake NPO since Meds taken in AM with sips of water? Meds patient instructed to take am of surgery PONV PONV - airplane tube builder: PONV - airplane tube builder Female No 08/18/25 13:46 HX of Motion Sickness No 08/18/25 13:46 HX of N/V After Surgery No 08/18/25 13:46 Non-Smoker Yes 08/18/25 13:46 Duration of Surgery greater No 08/18/25 13:46 than 60 minutes Number of Risk Factors 1 08/18/25 13:46 PONV Score Low Risk 08/18/25 13:46 Height & Weight Height & Weight: Anesthesia: Height & Weight Height 5 ft 11 in 07/27/25 08:29 Respiratory Assessment Respiratory Assessment - airplane tube builder: Respiratory Tract Infection Hx - airplane tube builder Hx Respiratory Tract Infection No 08/18/25 13:46 STOP Sleep Apnea STOP Sleep Apnea - airplane tube builder: STOP Sleep Apnea - airplane tube builder Hx Hypertension Yes: CONTROLLED WITH MED 08/18/25 13:46 Hx Sleep Apnea No 08/18/25 13:46 CPAP BIPAP Do you snore loudly (louder No 08/18/25 13:46 than talking or can be heard Do you often feel tired/ No 08/18/25 13:46 fatigued/ sleepy during daytime? Has anyone observed you stop No 08/18/25 13:46 breathing during sleep? STOP Results Negative 08/18/25 13:46 QUESTION #5 FULL TEXT : Do you snore loudly (louder than talking or can be heard through closed doors)? Tobacco Use History Tobacco Use History - airplane tube builder: Tobacco Use History - airplane tube builder Tobacco Use Non-smoker 02/15/24 13:30 Smoking Status Former smoker 08/18/25 13:46 Hx Tobacco Use No 08/18/25 13:46 Years Smoking Packs Smoked per Day Smoking Cessation Date was No - quit smoking greater 08/18/25 13:46 within the last 15 years than 15 years ago Hx Smoking Cessation Date Hx Smoking Cessation No 08/18/25 13:46 Counseling Hematologic Medial History Hematologic Hx - airplane tube builder: Hematologic Medical Hx - manager business banking Hx of Blood Transfusion No 08/18/25 13:46 Hx of Transfusion in last 3 No 08/18/25 13:46 Months Date of Last Transfusion (if within last 3 months) Ever experience any problems No 08/18/25 13:46 with transfusion(s)? Specify any problems Hx of Preganancy in last 3 N/A 08/18/25 13:46 Months Nurse Filling Out Transfusion DSCHRIBER 08/18/25 13:46 & Questions: Date: 08/18/25 08/18/25 13:46 Time: 13:50 08/18/25 13:46 Patient unable to answer at this time (ie. confused, unrespo /Reproduction History /Reproductive History - airplane tube builder: /Reproductive Hx- airplane tube builder Hx Now No 08/18/25 13:46 Gestational Age (in weeks): EDC: Hx Hx Para Hx Section SAB No 08/18/25 13:46 PFSH Medical History (Updated 08/18/25 @ 14:01 by Unique Jiménez) Wears glasses Anemia Syncope Former smoker Cardiology follow-up encounter History of atrial fibrillation History of echocardiogram Wears hearing aid Wears partial dentures Alcohol use Arthritis Back pain Gastric reflux Asthma Non-smoker History of stress test Hx of closed fracture of nasal bones High cholesterol Gout Home Medications Medication Instructions Recorded Last Taken Type lisinopril 5 mg tablet 5 mg PO DAILY #90 tabs 12/29 Unknown Rx pantoprazole 20 mg tablet,delayed 20 mg PO DAILY Reflu x #90 tabs 12/29/24 Unknown Rx release simvastatin 20 mg tablet 20 mg PO QHS cholesterol #90 tabs 12/29/24 Unknown Rx apixaban 5 mg tablet (Eliquis) 5 mg PO BID 03/02/25 History metoprolol succinate 25 mg 25 mg PO QDAY #1 TAB Unknown Rx tablet,extended release 24 hr nitroglycerin 0.4 mg sublingual 0.4 mg sublingual ONCE #25 TABLETS 07/06/25 Unknown Rx tablet ferrous sulfate 325 mg (65 mg 325 mg PO QDAY 07/20/25 08/16/25 History iron) tablet Allergy/AdvReac Type Severity Reaction Status Date / Time No Known Allergies Allergy Verified 08/18/25 13:44 Family History Father Diabetes Grandmother Diabetes Brother Diabetes Sister Diabetes Mother Breast cancer Psoriasis Surgical History (Updated 08/18/25 @ 14:01 by Unique Jiménez) Hx of arthroscopic knee surgery History of esophagogastroduodenoscopy (EGD) Hx of right cataract extraction History of cardiac catheterization Hx of colonoscopy Hx of left cataract extraction Hx laparoscopic cholecystectomy Hx of shoulder surgery History of incision and drainage History of carotid endarterectomy Social History household members: spouse housing: [facility] Smoking Status: Former smoker alcohol intake: current alcohol intake frequency: a few times a week Alcohol type: beer substance use type: does not use what type of physical activity do you participate in: other details: Golf frequency: 3-4 times per week Audit: Pertinent Findings Pertinent Findings EKG Perinent findings: 02/14/2024. Arterial rate 66 bpm. Normal sinus rhythm Stress test pertinent findings: 03/19/2025. No evidence of ischemia or infarcti on. EF 67% Echo (EF%) pertinent findings: 02/14/2024. EF 55 to 60%. Normal size function Additional pertinent findings: Hemoglobin 9.4. Recommendation Anesthesia Recommendation Anesthesia recommendation: OPTIMIZED for anesthesia
[2025-08-20] VITALS (8 sets, daily range): BP systolic 103–168; BP diastolic 54–98; PULSE 48–79; RESP 14–18; TEMP 36.1–36.6; O2SAT 96–100; BMI 24.3
[2025-08-20] MEDS: Lactated Ringers 1,000 ML 15 ML IV (08:42)
--- NOTE | 2025-08-20 09:27 | PCM.PRE.AN2 ---
ASA Classification* ASA Classification ASA Classification: 3 Assessment & Plan Anesthesia* Anesthesia Assessment Anesthesia Assessment: Discussed sedation and/or anesthesia options, risks, benefits, and alternatives with patient/parents/legal guardian/POA. Questions invited. The patient/parents/legal guardian/POA seems to understand and agrees to proceed with anesthesia plan. Reviewed the physical assessment, medical history, allergy history and patient home medications list prior to surgery/procedure/anesthetic and documented any changes. Performed airway and anesthesia risk assessments. Anesthesia Type Anesthesia Type: MAC History Source History Obtained from:: Patient and Chart Anesthesia Focused Assessment* Temperature: 97 F Pulse Rate: 79 Respiratory Rate: 16 Pulse Ox: 96 Oxygen Delivery Method: Room Air Airway Assessment Mouth opens: >3 cm Mallampati Score: II Teeth Condition: Caps/Crowns (Patient has a couple crowns. They are tight.) and Partial (Lower partials out.) Neck Range of motion (ROM): Limited ROM (Slight Decrease) Labs Anesthesia Preop lab: CBC WBC, (4.4-11.0) 4.0 K/mm3 L 07/20/25, 12:13 RBC, (4.6-6.2) 3.16 M/mm3 L 07/20/25, 12:13 Hgb, (13.0-16.5) 9.4 g/dL L 07/20/25, 12:13 Hct, (40-54) 29.2 % L 07/20/25, 12:13 Plt Count, (150-450) 238 K/mm3 07/20/25, 12:13 CHEMISTRY Potassium, (3.5-5.1) 4.6 mmol/L 02/15/24, 06:25 Sodium, (136-145) 142 mmol/L 02/15/24, 06:25 Magnesium, (1.6-2.6) 2.1 mg/dL 02/14/24, 16:36 BUN, (7-18) 12 mg/dL 02/15/24, 06:25 Creatinine, (0.70-1.30) 1.25 mg/dL 02/15/24, 06:25 Glucose, (74-106) 120 mg/dL H 02/15/24, 06:25 TSH, (0.358-3.74) 2.35 uIU/mL 02/15/24, 06:25 COAG PT, (11.7-14.9) 13.3 SECONDS 02/14/24, 16:36 Pre-Assessment Diagnosis/Proposed Procedure Planned Operative Procedure(s): EGD/CSCOPE Anesthesia History 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 When Was Last Pacemaker Check QUESTION #4 FULL TEXT: You/Your Family Experience fever (hyperthermia) with Anesthesia Last Oral Intake Last Oral intake: Last Oral Intake NPO since 06:30 08/20/25 08:38 Meds taken in AM with sips of Yes 08/20/25 08:38 water? Meds patient instructed to take am of surgery Any additional information?: Yes NPO since: 06:30 (Patient had black coffee at 6:30 AM.) Meds taken in AM with sips of water?: Yes PONV PONV - cutting table operator: PONV - cutting table operator Female No 08/18/25 13:46 HX of Motion Sickness No 08/18/25 13:46 HX of N/V After Surgery No 08/18/25 13:46 Non-Smoker Yes 08/18/25 13:46 Duration of Surgery greater No 08/18/25 13:46 than 60 minutes Number of Risk Factors 1 08/18/25 13:46 PONV Score Low Risk 08/18/25 13:46 Height & Weight Height & Weight: Anesthesia: Height & Weight Height 5 ft 11 in 08/20/25 08:38 Weight: 79.1 kg 08/20/25 08:38 Body Mass Index (BMI) 24.3 08/20/25 08:38 Respiratory Assessment Respiratory Assessment - cutting table operator: Respiratory Tract Infection Hx - cutting table operator Hx Respiratory Tract Infection No 08/18/25 13:46 STOP Sleep Apnea STOP Sleep Apnea - cutting table operator: STOP Sleep Apnea - cutting table operator Hx Hypertension Yes: CONTROLLED WITH MED 08/18/25 13:46 Hx Sleep Apnea No 08/18/25 13:46 CPAP BIPAP Do you snore loudly (louder No 08/18/25 13:46 than talking or can be heard Do you often feel tired/ No 08/18/25 13:46 fatigued/ sleepy during daytime? Has anyone observed you stop No 08/18/25 13:46 breathing during sleep? STOP Results Negative 08/18/25 13:46 QUESTION #5 FULL TEXT : Do you snore loudly (louder than talking or can be heard through closed doors)? 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 Specify any problems Hx of Preganancy in last 3 N/A 08/18/25 13:46 Months Nurse Filling Out Transfusion DSCHRIBER 08/18/25 13:46 & Questions: Date: 08/18/25 08/18/25 13:46 Time: 13:50 08/18/25 13:46 Patient unable to answer at this time (ie. confused, unrespo /Reproduction History /Reproductive History - cutting table operator: /Reproductive Hx- cutting table operator Hx Now No 08/18/25 13:46 Gestational Age (in weeks): EDC: Hx Hx Para Hx Section SAB No 08/18/25 13:46 Active Medications Active Medications: Current Medications Generic Name Dose Route Start Last Admin Trade Name Freq PRN Reason Stop Dose Admin Lactated Ringer's 1,000 mls @ 15 mls/hr 08/20/25 08:30 08/20/25 08:42 IV 15 mls/hr .Q48H JASMINA Administration PFSH Medical History Wears glasses Anemia Syncope Former smoker Cardiology follow-up encounter History of atrial fibrillation History of echocardiogram Wears hearing aid Wears partial dentures Alcohol use Arthritis Back pain Gastric reflux Asthma Non-smoker History of stress test Hx of closed fracture of nasal bones High cholesterol Gout Home Medications Medication Instructions Recorded Last Taken Type lisinopril 5 mg tablet 5 mg PO DAILY #90 tabs 12/29/24 Unknown Rx pantoprazole 20 mg tablet,delayed 20 mg PO DAILY Reflux #90 tabs 12/29/24 08/20/25 Rx release simvastatin 20 mg tablet 20 mg PO QHS cholesterol #90 tabs 12/29/24 Unknown Rx apixaban 5 mg tablet (Eliquis) 5 mg PO BID 03/02/25 08/16/25 History metoprolol succinate 25 mg 25 mg PO QDAY #1 TAB 03/02/25 08/20/25 Rx tablet,extended release 24 hr nitroglycerin 0.4 mg sublingual 0.4 mg sublingual ONCE #25 TABLETS 07/06/25 Unknown Rx tablet ferrous sulfate 325 mg (65 mg 325 mg PO QDAY 07/20/25 08/16/25 History iron) tablet Allergy/AdvReac Type Severity Reaction Status Date / Time No Known Allergies Allergy Verified 08/20/25 08:37 Family History Father Diabetes Grandmother Diabetes Brother Diabetes Sister Diabetes Mother Breast cancer Psoriasis Surgical History Hx of arthroscopic knee surgery History of esophagogastroduodenoscopy (EGD) Hx of right cataract extraction History of cardiac catheterization Hx of colonoscopy Hx of left cataract extraction Hx laparoscopic cholecystectomy Hx of shoulder surgery History of incision and drainage History of carotid endarterectomy Social History household members: [facility] Smoking Status: Former smoker alcohol intake: current alcohol intake frequency: a few times a week Alcohol type: beer substance use type: does not use what type of physical activity do you participate in: other details: Golf frequency: 3-4 times per week Review of Systems (Anesthesia) ROS Narrative System reviewed and no additional complaints, except as documented. Physical Exam Resp clear to auscultation bilaterally
--- NOTE | 2025-08-20 09:30 | COLBX_PTH ---
PATIENT: KRYS AYALA LOC: EN U#:[id number] AGE/SX: 85/M ROOM: RE08/20/[address]: Dr. Dk Duke MD : 1940 BED: DIS: 08/20/2025 SPEC #: [id number] RECD: 08/20/25 12:36 STATUS: LYNDA REJamal #: [id number] PAULA: 08/20/25 09:[address]: Dk Duke DEPT: SURGICAL PATHOLOGY RECD BY: Jagjit Benton ENTERED: 08/20/25 13:45 SP TYPE: COLON BX OTHR DR: Dr. Mauri Shi, DO Tissues: A - Ascending colon B - Sigmoid colon biopsy Procedures: Surgery Specimen Level IV HEADER OPERATION: Colonoscopy with polypectomy, EGD PRE-OP DIAGNOSIS: Anemia TISSUE SUBMITTED: A- Ascending colon polyp, B- Sigmoid colon polyp MICROSCOPIC DIAGNOSIS A. Ascending colon, polyp, biopsy: - Tubular adenoma. B. Sigmoid colon, polyp, biopsy: - Colonic mucosal polyp distorted with cautery artifact - see note. Note: Cautery artifact limits the assessment. The differential diagnosis includes hyperplastic polyp vs tubular adenoma. MICROSCOPIC DESCRIPTION Slides are reviewed. GROSS DESCRIPTION A. Received in fixative is one container labeled with the patient's name and designated "Ascending colon polyp." The specimen consists of one irregular fragment of alvarez tissue that measures 0.3 cm. The specimen is totally submitted in one cassette. B. Received in fixative is one container labeled with the patient's name and designated "Sigmoid colon polyp." The specimen consists of two irregular fragments of alvarez tissue that measure 0.1 and 0.3 cm. The specimen is totally submitted in one cassette. ND 08/20/2025 CPT:86943s9
--- NOTE | 2025-08-20 09:41 | PCM.HP.BLA ---
History and Physical Date of Admission: 08/20/25 Intake Vital Signs 07/20/2511:25 07/27/2508:29 Height 6 ft 5 ft 11 in Weight: 180 lb 181 lb 2 oz BMI 24.4 25.2 BP 148/82 H 181/72 H Blood Pressure Location Lt brachial Rt brachial Position Sitting Sitting Respiration 16 18 Pulse 70 68 Pulse Source Monitor Monitor Temp 97 F L 97.2 F L Temp Source Temporal Temporal Pulse Oximetry (%) 96 98 Oxygen Delivery Method room air room air Intake Visit Reasons: Anemia Chief Complaint: anemia Is patient in pain?: No Allergies No Known Allergies Allergy (Verified 07/27/25 08:30) Medications Medication Instructions Recorded Confirmed Type lisinopril 5 mg tablet 5 mg PO DAILY #90 tabs 12/29/24 07/27/25 Rx pantoprazole 20 mg tablet,delayed 20 mg PO DAILY Reflux #90 tabs 12/29/24 07/27/25 Rx release simvastatin 20 mg tablet 20 mg PO QHS cholesterol #90 tabs 12/29/24 07/27/25 Rx apixaban 5 mg tablet (Eliquis) 5 mg PO BID 03/02/25 07/27/25 History metoprolol succinate 25 mg 25 mg PO QDAY #1 TAB 03/02/25 07/27/25 Rx tablet,extended release 24 hr nitroglycerin 0.4 mg sublingual 0.4 mg sublingual ONCE #25 TABLETS 07/06/25 07/27/25 Rx tablet ferrous sulfate 325 mg (65 mg 325 mg PO QDAY 07/20/25 07/27/25 History iron) tablet Have you fallen in the past year?: No PFSH Medical History TIA (transient ischemic attack) Wears hearing aid Wears partial dentures Alcohol use Arthritis Gout Back pain Gastric reflux Asthma Non-smoker History of stress test Hx of closed fracture of nasal bones High cholesterol Gout Surgical History History of cardiac catheterization Hx of colonoscopy Hx of left cataract extraction Hx laparoscopic cholecystectomy Hx of shoulder surgery History of incision and drainage History of carotid endarterectomy Family History Father Diabetes Grandmother Diabetes Brother Diabetes Sister Diabetes Mother Breast cancer Psoriasis Social History household members: spouse housing: condominium Smoking Status: Never smoker alcohol intake: current alcohol intake frequency: a few times a week Alcohol type: beer substance use type: does not use what type of physical activity do you participate in: other details: Golf frequency: 3-4 times per week HPI HPI HPI: Patient is an 85-year-old male here for anemia. The patient does not note any blood in his stool or abdominal pain. He does have acid reflux. He has not had a colonoscopy in about 25 years. ROS General General: Yes weight change (loss); No appetite, fatigue, colon cancer, breast cancer or weakness HEENT HEENT: No difficulty swallowing, eye injury, eye surgery, swollen glands or hoarseness Endo Endocrine: No thyroid disease, diabetes mellitus, thyroid cancer, Hair loss, heat intolerance or cold intolerance Skin Skin: Yes rash; No changing moles Musc Musculoskeletal: Yes back problems and arthritis; No rheumatoid arthritis, gout or joint pain Cardio Cardiovascular: Yes atrial fibrillation; No murmur, pacemaker, heart disease, high blood pressure, heart attack, heart stent, palpitations, shortness of breath with exertion or chest pain Psych Psychiatric: No depression, anxiety or hearing voices Resp Respiratory: No shortness of breath, No sleep apnea, No cough, No COPD, No asthma, No emphysema and No wheezing Gastro Gastrointestinal: No abdominal pain, No nausea or vomiting, No diarrhea, No constipation, No blood in stool, Yes acid reflux, No hemorrhoids, No ulcers, No gallbladder problem and No black,tarry stools Jin Hematologic: Yes blood thinners, No blood disorders, No bleeding, Yes anemia and No blood clots Neuro Neurologic: No numbness, No tingling and No weakness Exam Const General: cooperative Orientation: alert and oriented x3 HENMT Head: normal to inspection Neck Neck: normal visual inspection and full ROM Chest Chest palpation & inspection: normal inspection of the chest Resp Effort & Inspection: normal respiratory effort Auscultation: clear to auscultation bilaterally Cardio Rate: regular rate Rhythm: regular rhythm GI Inspection: non-distended Palpation: soft and nontender Skin General: no rashes or lesions noted Neuro General: patient alert and patient oriented x3 Extrem General: full ROM Psych Appearance: grossly normal Mental Status: mental status grossly normal Assessment and Plan Assessment and Plan (1) Anemia: Status: Acute Qualifiers: Anemia type: iron deficiency Iron deficiency anemia type: unspecified iron deficiency Qualified Code(s): D50.9 - Iron deficiency anemia, unspecified Plan: Patient has iron deficiency anemia and has not had a colonoscopy in several years. I discussed EGD and colonoscopy to evaluate for occult bleeding. I explained endoscopy in detail to the patient. I explained the risks including but not limited to stroke or heart attack with anesthesia, perforation of the GI tract, bleeding, infection. I explained that any of these could necessitate further emergency surgery. The patient understands and all questions were answered sufficiently. The patient wishes to proceed with procedure. Patient will hold his Eliquis for 3 days Dk Duke MD Pager: [facility] [address] [place] [address], [address] [place] [address] Office: I have examined the patient and the H&P has been reviewed. There are no clinical changes since date of exam.
--- NOTE | 2025-08-20 10:16 | OP.EGD_ITS ---
Patient Name: Iraj Abad Procedure Date: 08/20/2025 9:46 AM Date of : 1940 Age: 85 Procedure: Upper GI endoscopy Indications: Iron deficiency anemia Providers: Dk Duke MD Referring MD: Mauri Shi Medicines: Propofol per Anesthesia Patient Profile: This is an 85 year old male. Refer to note in patient chart for documentation of history and physical. Complications: No immediate complications. Estimated blood loss: Minimal. Procedure: Pre-Anesthesia Assessment: - Prior to the procedure, a History and Physical was performed, and patient medications and allergies were reviewed. The patient's tolerance of previous anesthesia was also reviewed. The risks and benefits of the procedure and the sedation options and risks were discussed with the patient. All questions were answered, and informed consent was obtained. Prior Anticoagulants: The patient has taken Eliquis (apixaban), last dose was 3 days prior to procedure. After reviewing the risks and benefits, the patient was deemed in satisfactory condition to undergo the procedure. After obtaining informed consent, the endoscope was passed under direct vision. Throughout the procedure, the patient's blood pressure, pulse, and oxygen saturations were monitored continuously. The was introduced through the mouth, and advanced to the second part of duodenum. The upper GI endoscopy was accomplished without difficulty. The patient tolerated the procedure well. Scope In: 9:55:15 AM Scope Out: 9:57:47 AM Total Procedure Duration Time 0 hours 2 minutes 32 seconds Findings: The esophagus was normal. The stomach was normal. The examined duodenum was normal. Impression: - Normal esophagus. - Normal stomach. - Normal examined duodenum. - No specimens collected. Recommendation: - Discharge patient to home. - Resume previous diet. - Continue present medications. Procedure Code(s): --- Professional --- 17100, Esophagogastroduodenoscopy, flexible, transoral; diagnostic, including collection of specimen(s) by brushing or washing, when performed (separate procedure) Diagnosis Code(s): --- Professional --- D50.9, Iron deficiency anemia, unspecified CPT copyright 2021 [employer]. All rights reserved. The codes documented in this report are preliminary and upon industry consultant review may be revised to meet current compliance requirements. Dk Duke MD 08/20/2025 10:16:07 AM This report has been signed electronically. Number of Addenda: 0 Note Initiated On: 08/20/2025 9:46 AM
--- NOTE | 2025-08-20 10:16 | OP.PROVAT_ITS ---
08/20/2025 Mauri Shi Re : Upper GI endoscopy procedure for Iraj Abad Dear Dr. Shi This procedure was performed on Wednesday, August 20, 2025. My impressions and recommendations are as follows: Impressions : - Normal esophagus. - Normal stomach. - Normal examined duodenum. - No specimens collected. Recommendations : - Discharge patient to home. - Resume previous diet. - Continue present medications. My findings are described in the full procedure note, which is enclosed. If I can be of further assistance, please feel free to contact me at Doctor phone number(s): , Work: . Sincerely, Dk Duke MD 08/20/2025 10:16:07 AM This report has been signed electronically.
--- NOTE | 2025-08-20 10:18 | OP.COLON_ITS ---
Patient Name: Iraj Abad Procedure Date: 08/20/2025 9:58 AM Date of : 1940 Age: 85 Procedure: Colonoscopy Indications: Iron deficiency anemia Providers: Dk Duke MD Referring MD: Mauri Shi Medicines: Propofol per Anesthesia Patient Profile: This is an 85 year old male. Refer to note in patient chart for documentation of history and physical. Last Colonoscopy: more than 10 years ago. Complications: No immediate complications. Estimated blood loss: Minimal. Procedure: Pre-Anesthesia Assessment: - Prior to the procedure, a History and Physical was performed, and patient medications and allergies were reviewed. The patient's tolerance of previous anesthesia was also reviewed. The risks and benefits of the procedure and the sedation options and risks were discussed with the patient. All questions were answered, and informed consent was obtained. Prior Anticoagulants: The patient has taken Eliquis (apixaban), last dose was 3 days prior to procedure. After reviewing the risks and benefits, the patient was deemed in satisfactory condition to undergo the procedure. After I obtained informed consent, the scope was passed under direct vision. Throughout the procedure, the patient's blood pressure, pulse, and oxygen saturations were monitored continuously. The was introduced through the anus and advanced to the cecum, identified by appendiceal orifice and ileocecal valve. The colonoscopy was performed without difficulty. The patient tolerated the procedure well. The quality of the bowel preparation was good. The ileocecal valve, appendiceal orifice, and rectum were photographed. Scope In: 9:58:51 AM Scope Withdrawal Time 0 hours 7 minutes 6 seconds Scope Out: 10:14:08 AM Total Procedure Duration Time 0 hours 15 minutes 17 seconds Findings: Two polyps were found in the sigmoid colon and ascending colon. The polyps were small in size. These polyps were removed with a hot snare. Resection and retrieval were complete. The exam was otherwise without abnormality on direct and retroflexion views. Impression: - Two small polyps in the sigmoid colon and in the ascending colon, removed with a hot snare. Resected and retrieved. - The examination was otherwise normal on direct and retroflexion views. Recommendation: - Discharge patient to home. - Resume previous diet. - Continue present medications. - Resume Eliquis (apixaban) at prior dose in 2 days. - Repeat colonoscopy in 5 years for surveillance based on pathology results. Procedure Code(s): --- Professional --- 03403, Colonoscopy, flexible; with removal of tumor(s), polyp(s), or other lesion(s) by snare technique Diagnosis Code(s): --- Professional --- D12.5, Benign neoplasm of sigmoid colon D12.2, Benign neoplasm of ascending colon D50.9, Iron deficiency anemia, unspecified CPT copyright 2021 [employer]. All rights reserved. The codes documented in this report are preliminary and upon flight purser review may be revised to meet current compliance requirements. Dk Duke MD 08/20/2025 10:18:04 AM This report has been signed electronically. Number of Addenda: 0 Note Initiated On: 08/20/2025 9:58 AM
--- NOTE | 2025-08-20 10:18 | OP.PROVAT_ITS ---
08/20/2025 Mauri Shi Re : Colonoscopy procedure for Iraj Abad Dear Dr. Shi This procedure was performed on Wednesday, August 20, 2025. My impressions and recommendations are as follows: Impressions : - Two small polyps in the sigmoid colon and in the ascending colon, removed with a hot snare. Resected and retrieved. - The examination was otherwise normal on direct and retroflexion views. Recommendations : - Discharge patient to home. - Resume previous diet. - Continue present medications. - Resume Eliquis (apixaban) at prior dose in 2 days. - Repeat colonoscopy in 5 years for surveillance based on pathology results. My findings are described in the full procedure note, which is enclosed. If I can be of further assistance, please feel free to contact me at Doctor phone number(s): , Work: . Sincerely, Dk Duke MD 08/20/2025 10:18:04 AM This report has been signed electronically.
--- NOTE | 2025-08-20 10:24 | PCM.POST.ANE ---
Anesthesia: Postop Eval I Current Vital Signs Temperature: 97 F Pulse Rate: 56 Blood Pressure: 103/54 Respiratory Rate: 14 Pulse Ox: 99 Oxygen Delivery Method: Room Air Assessment Airway patent: Yes Spontaneous unlabored respirations: Yes Mental status: Asleep nausea: No Vomiting: No Anesthesia Complication: No Fluid Hydration Crystalloid volume administer (ml): 800 Total IV fluid infused: 800 Progress Note Anesthesia document: Postop Eval 1 completed: Yes
--- NOTE | 2025-08-20 12:01 | PCM.POSTANE2 ---
Anesthesia Postop Eval I Sum Postop Eval Completion status Anesthesia document: Postop Eval 1 completed: Yes Anesthesia Postop Eval I Summary Anesthesia Postop Eval I Summary: Anesthesia Postop Eval I: Assessment Summary Airway patent Yes 08/20/25 10:25 [email or web address] Spontaneous unlabored Yes 08/20/25 10:25 [email or web address] respirations Mental status Asleep 08/20/25 10:25 [email or web address] nausea No 08/20/25 10:25 [email or web address] Vomiting No 08/20/25 10:25 [email or web address] Anesthesia Postop Eval I: Fluid Summary Crystalloid volume administer 800 08/20/25 10:25 [email or web address] (ml) Colloids volume administered ( ml) Blood Product volume administered (ml) Total IV fluid infused 800 08/20/25 10:25 [email or web address] Anesthesia Postop Eval I: Summary Notes Anesthesia Complication No 08/20/25 10:25 [email or web address] Anesthesia Complication Comment: Post-operative progress note Anesthesia: Postop Eval II Evaluation Mental status: Awake Pain Level: 0 nausea: No Vomiting: No
== END 2025-08-20 11:12 | disposition home or self-care (01) ==
LOC: EN 08:17 → AC 08:19
PROVIDERS: PCP Family Medicine; Referring Provider Family Medicine; Visit Provider Surgery
PROC: 0DJD8ZZ Inspection of Lower Intestinal Tract, Via Natural or Artificial Opening Endoscopic (ICD-10-PCS; CPT 45378; principal; 2025-08-20 09:25)
DX: D50.9 Iron deficiency anemia, unspecified (principal); E78.00 Pure hypercholesterolemia, unspecified; Z86.73 Personal history of transient ischemic attack (TIA), and cerebral infarction without residual deficits; Z79.01 Long term (current) use of anticoagulants; K21.9 Gastro-esophageal reflux disease without esophagitis; Z79.899 Other long term (current) drug therapy; Z98.42 Cataract extraction status, left eye; Z90.49 Acquired absence of other specified parts of digestive tract; K63.5 Polyp of colon
CPT/HCPCS: 45385; 43235; 88305; J2405